=== PATIENT | male | born 1945 ===

== ENCOUNTER → 2022-04-18 08:25 | Outpatient (CLI) | payer MEDICARE, SELFPAY ==
--- NOTE | ~2022-04-18 | CT_ITS ---
EXAMINATION: CT abdomen pelvis wo/w con DATE: 04/18/2022 09:42 INDICATION: Microscopic hematuria TECHNIQUE: Computed tomography (CT) of the abdomen and pelvis was performed without intravenous contr ast. CT of the abdomen and pelvis was then performed with a total of 130 mL Omnipaque-350 intravenous contrast using a double-bolus technique for simultaneous opacification of the renal parenchyma and r enal collecting system. Automated exposure control and iterative reconstruction technique were employ ed. The dose-length product was 2174.66 mGy-cm. COMPARISON: None FINDINGS: CT UROGRAM: Mild bibasilar atelectasis. Heart size is normal. Atherosclerotic coronary artery calcific location. No pericardial or pleural effusion. Calcified right hilar and mediastinal lymph nodes along with a fe w scattered splenic calcifications consistent with old granulomatous disease. Liver, gallbladder, cabello creas and left adrenal gland are normal. 2.5 cm low-attenuation right adrenal adenoma. Several bilate ral nonenhancing renal cysts, the largest measuring 2.3 cm in the left kidney and 1.6 cm in the right kidney, both with slightly greater than simple fluid attenuation consistent with a proteinaceous/hem orrhagic cyst. 2 mm nonobstructing stone in an upper pole calyx of the right kidney. Bilateral ureter s are opacified excreted contrast in their near entirety with short tiny caliber likely decompressed distal segments of both ureters in the pelvis. No urothelial irregularities identified. Bladder is no rmal with a contrast opacified left-sided ureteral jet. Bowels including the appendix are normal. No free intraperitoneal gas or fluid. No pathologically enlarged abdominal or pelvic lymphadenopathy. Mi ld S-shaped curvature of the lumbar spine with severe spondylosis. Mild to moderate thoracic spondylo sis with bridging osteophytes at multiple levels consistent with diffuse idiopathic skeletal hyperost osis (DISH). IMPRESSION: 1. 2 mm nonobstructing right renal stone. No lesion suspicious for malignancy at the kidneys, ureters or bladder.. Reviewed, dictated and finalized at location A. IMPRESSION: 1. 2 mm nonobstructing right renal stone. No lesion suspicious for malignancy a t the kidneys, ureters or bladder..
[2022-04-18 09:11] LABS: Estimated Glomerular Filt Rate 59
== END ==
PROVIDERS: PCP Internal Medicine; Visit Provider Urology
DX: R31.29 Other microscopic hematuria (principal); N20.0 Calculus of kidney
CPT/HCPCS: 74178; Q9967

== ENCOUNTER 2025-08-11 10:30 | Emergency (ER) | payer MEDICARE, SELFPAY ==
--- NOTE | ~2025-08-11 | XR_ITS ---
EXAMINATION: XR chest 2V DATE: 08/11/2025 11:46 INDICATION: Syncope TECHNIQUE: frontal and lateral views of the chest were obtained. COMPARISON: None FINDINGS: Calcified nodule at the right apex along with calcified right paratracheal lymph nodes consistent with old granulomatous disease. Thin linear band of discoid atelectasis at the left costophrenic angle. No other airspace opacities, pulmonary edema, pleural effusion or pneumothorax. The cardiomediastinal silhouette is normal. Mild degenerative skeletal changes in the spine and at the shoulders. IMPRESSION: 1. Reviewed, dictated and finalized at location A. [facility] IMPRESSION: 1.
[2025-08-11 10:31] VITALS: BP 121/68; PULSE 66; RESP 15; TEMP 36.4; O2SAT 100
[2025-08-11 10:44] VITALS: PULSE 64
--- NOTE | 2025-08-11 10:46 | ECG_ITS ---
Test Date: 2025-08-11 10:52:33 Measurements Intervals [place] Rate: 68 P: 53 KS: 218 QRS: 30 QRSD: 139 T: -65 QT: 429 QTc: 458 Interpretive Statements SINUS RHYTHM WITH FIRST DEGREE AV BLOCK WITH OCCASIONAL VENTRICULAR PREMATURE COMPLEXES RIGHT BUNDLE BRANCH BLOCK T WAVE ABNORMALITY IN INFERIOR LEADS- CONSIDER ISCHEMIA BASELINE ARTIFACT- I, II, III, AVR, AVL, AVF, V1-V6 ABNORMAL ECG No previous ECG available for comparison Electronically Signed On 08-11-2025 11:37:09 [employer] by Loco Kiser D.O.
[2025-08-11 11:12] LABS: Hematocrit 43.6 % (42.0-52.0); Hemoglobin 14.2 g/dL (14.0-18.0); Immature Granulocyte Percent A 1.3 % (0-0.5); Lymphocytes Absolute Auto 0.91 K/mm3 (0.9-3.2); Mean Corpuscular HGB Conc 32.6 g/dl (32-36); Mean Corpuscular Hemoglobin 32.6 pg (26-34); Mean Corpuscular Volume 100.0 fl (80-100); Nucleated Red Blood Cells Absolute Auto 0.000 K/mm3 (0.0-0.012); Nucleated Red Blood Cells Perc 0.0 % (0.0-0.2); Platelet Count Result 159 k/mm3 (150-375); Red Blood Count 4.36 M/mm3 (4.6-6.20); White Blood Count 3.9 K/mm3 (4.5-10.0)
[2025-08-11 11:34] LABS: Alanine Aminotransferase 7 U/L (6-50); Albumin Level 3.3 g/dL (3.5-5.1); Alkaline Phosphatase 75 U/L (38-126); Anion Gap 3 mmol/L (4-12); Aspartate Amino Transferase 23 U/L (17-59); Bilirubin,Total 0.7 mg/dL (0.2-1.3); Blood Urea Nitrogen 23 mg/dL (9-20); Calcium 8.9 mg/dL (8.4-10.2); Carbon Dioxide 30 mmol/L (22-30); Chloride 100 mmol/L (98-107); Estimated CRCL calculation 51 ml/min; Estimated Glomerular Filt Rate > 60; Glucose 166 mg/dL (65-110); Potassium 4.7 mmol/L (3.4-5.0); Sodium 133 mmol/L (137-145); Total Protein 6.1 g/dL (6.3-8.2)
--- NOTE | 2025-08-11 12:15 | ED_ITS ---
HPI - Syncope General Chief Complaint: Syncope Stated Complaint: SYNCOPE Time Seen by Provider: 08/11/25 12:10 Source: EMS Mode of arrival: EMS History of Present Illness HPI narrative: 79 years old white male came from home by ambulance because of syncope. Patient was standing in the bathroom brushing his teeth suddenly got lightheadedness and dizziness, sat on the toilet to avoid falling, woke up on the floor, possible seconds or minutes of loss of consciousness. Currently patient is asymptomatic he denies any fever chills nausea vomiting diarrhea constipation chest pain shortness of breath headache neck pain or back pain. 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 Related Data Allergies Allergy/AdvReac Type Severity Reaction Status Date / Time mold Allergy Intermediate Unknown Verified 08/11/25 10:45 Review of Systems 2 Review of Systems: All systems reviewed & are unremarkable except as noted in HPI and below Exam 2 Narrative: General appearance: Well-developed, well-nourished, not in any pain or distress Skin: Pale Head: Normocephalic, nontraumatic Eyes: Clear conjunctiva ENT: Oropharynx normal, ears normal, nose normal Neck: Supple, nontender Chest and respiratory: Airway patent, no respiratory distress, no accessory muscle use Heart: Regular rate/rhythm Abdomen: Soft, nontender, no organomegaly, quiet bowel sounds Vascular: Normal peripheral pulses, normal capillary refill. Musculoskeletal: Normal range of motion, nontender back Neurologic: Alert and oriented ?3, FULL TIME is normal as tested, no gross motor deficit Course Consultations Hospitalist: Time of Consult: 13:44 I have discussed the care of this patient with the following provider: DR SOLER, HOSPITALIST AT [facility] WHO ACCEPTED PATIENT TRANS Vital Signs Vital signs: Vital Signs Temperature 36.4 C 08/11/25 10:31 Pulse Rate 66 08/11/25 10:31 Respiratory Rate 15 08/11/25 10:31 Blood Pressure 121/68 08/11/25 10:31 Pulse Oximetry 100 08/11/25 10:31 Oxygen Delivery Room Air 08/11/25 10:31 Temperature 36.4 C 08/11/25 10:31 Pulse Rate 64 08/11/25 10:44 Respiratory Rate 15 08/11/25 10:31 Blood Pressure 121/68 08/11/25 10:31 Pulse Oximetry 100 08/11/25 10:31 Oxygen Delivery Room Air 08/11/25 10:31 Critical Care Time Critical Care Time Critical Care Time: No Discharge Plan Discharge Clinical Impression: Syncope and collapse Patient Disposition: Left Against Medical Advice Condition: Guarded Prognosis Patient Language: [place] Follow-up/Referrals: Micheal,MD Jerson [Primary Care Provider] [facility] Narrative Medical decision making narrative: Patient came to the ED with syncope Vital signs are stable Physical examination showing a left upper chest pacemaker placed 1 week ago, the wound is dry and clean Differential diagnosis: Orthostatic hypotension, pacemaker malfunction, cardiac arrhythmia, electrolyte imbalance, dehydration blood workup today include maybe a CBC, CMP, troponin showed sodium 133, otherwise within normal limit EKG showed normal sinus rhythm Chest x-ray showed Differential Diagnosis Differential Diagnosis: As above Medical Records I have reviewed the following patient records and this information was taken into consideration when formulating the assessment and plan.: previous labs Lab Data [facility] Lab Attestation statement: I personally reviewed the patient's lab results. 08/11/25 11:06 08/11/25 11:06 Labs: Lab Results 08/11/25 Range/Units 11:06 WBC 3.9 L (4.5-10.0) K/mm3 RBC 4.36 L (4.6-6.20) M/mm3 Hgb 14.2 (14.0-18.0) g/dL Hct 43.6 (42.0-52.0) % MCV 100.0 (80-100) fl MCH 32.6 (26-34) pg MCHC 32.6 (32-36) g/dl RDW 14.5 (11.5-14.5) % Plt Count 159 (150-375) k/mm3 MPV 9.0 (7.4-10.4) fl Immature Gran % (Auto) 1.3 H (0-0.5) % Neut % (Auto) 61.1 (45.5-73.1) % Lymph % (Auto) 23.3 (18.3-44.2) % [place] % (Auto) 8.7 H (2.6-8.5) % Eos % (Auto) 4.1 (0-4.4) % Baso % (Auto) 1.5 H (0.2-1.2) % Lymph # (Auto) 0.91 (0.9-3.2) K/mm3 [place] # (Auto) 0.3 (0.1-0.6) K/mm3 Eos # (Auto) 0.2 (0-0.3) K/mm3 Baso # (Auto) 0.1 (0.0-0.1) K/mm3 Abs Immat Gran (auto) 0.05 H (0.00-0.031) K/mm3 Absolute Neuts (auto) 2.4 (1.3-6.7) K/mm3 Absolute Nucleated RBC 0.000 (0.0-0.012) K/mm3 Nucleated RBC % 0.0 (0.0-0.2) % Sodium 133 L (137-145) mmol/L Potassium 4.7 (3.4-5.0) mmol/L Chloride 100 (98-107) mmol/L Carbon Dioxide 30 (22-30) mmol/L Anion Gap 3 L (4-12) mmol/L BUN 23 H (9-20) mg/dL Creatinine 1.04 (0.7-1.3) mg/dL Estim Creat Clear Calc 51 ml/min Estimated GFR > 60 (59 - ) Glucose 166 H (65-110) mg/dL Calcium 8.9 (8.4-10.2) mg/dL Total Bilirubin 0.7 (0.2-1.3) mg/dL AST 23 (17-59) U/L ALT 7 (6-50) U/L Alkaline Phosphatase 75 (38-126) U/L Troponin I < 0.012 (0.000-0.034) ng/mL Total Protein 6.1 L (6.3-8.2) g/dL Albumin 3.3 L (3.5-5.1) g/dL Imaging Data Radiologist's impression: ITS Impressions Chest X-Ray 08/11/25 11:51 IMPRESSION: 1. ECG Data EKG #1: Attestation: I personally reviewed and interpreted this ECG as follows: ECG completion date: 08/11/25 Interpretation: Normal sinus rhythm at 68 beats per minute with first-degree heart block with occasional PVCs years on exam of right bundle-branch block, T-wave abnormality in inferior leads-consider ischemia, baseline artifact, abnormal EKG, no previous EKG available for comparison
[2025-08-11 13:07] LABS: Troponin I < 0.012 ng/mL (0.000-0.034)
[2025-08-11 13:13] VITALS: BP 136/76; PULSE 69
--- OUTSIDE RECORDS SUMMARY | 2025-08-11 14:18 | XMS_ITS | Clinical Summary ---
Author Organization [facility] Address [address] [place] [address] Phone Care Team Providers Care Freelance Court Reporter Name Role Phone Jerson Burton MD Primary Care Provider [phone] Laith Ceballos MD Unavailable [phone] Allergies No known active allergies Medications finasteride (PROSCAR) 5 MG Tablet Take 5 mg by mouth daily. Active furosemide (LASIX) 20 MG Tablet Take 20 mg by mouth daily. Active lisinopril (PRINIVIL, ZESTRIL) 10 MG Tablet Take 10 mg by mouth daily. Active simvastatin (ZOCOR) 80 MG Tablet Take 80 mg by mouth every evening. Pt states he cuts in half and takes 40mg Active timolol (TIMOPTIC) 0.5 % Solution Place 1 Drop in affected eye(s) 2 times daily. Active WARFARIN SODIUM PO Take 4 mg by mouth. 6mg one day then 8mg the next day Active Multiple Vitamin (MULTIVITAMIN PO) Take by mouth. Active carbidopa-levod opa (SINEMET) 25-100 MG Tablet Take 1 Tablet by mouth 3 times daily. Active amitriptyline (ELAVIL) 25 MG Tablet Take 25 mg by mouth nightly. Active Active Problems Problem Noted Date Diagnosed Date Small vessel disease 10/03/2023 Bulbar weakness 10/03/2023 Immunizations Immunization Administration Dates Next Due Influenza Vaccine, Quadrivalent, PF 05/22/2023 Influenza, High-dose, Quadrivalent 05/19/2021 Influenza, high-dose, trivalent, PF 03/30/2024 Pneumococcal Vaccine - 13 Valent 05/19/2021 Pneumococcal Vaccine Adult - 23 Valent Family History Medical History Relation Name Comments Heart Disease Father Diabetes Mother Relation Name Status Comments Father Mother Social History Tobacco Use Types Packs/Day Years Used Date Smoking Tobacco: Former Cigarettes 0 Q uit: 08/19/1995 Smokeless Tobacco: Never Tobacco Cessation:Counseling Given: Not Answered Alcohol Use Standard Drinks/Week Comments Yes 0 (1 standard drink = 0.6 oz pur e alcohol) rare once or twice a year Sex and Gender Information Value Date Recorded Sex Assigned at Not on file Legal Sex Male 11:10 AM CDT Gender Identity Not on file Sexual Orientation Not on file Last Filed Vital Signs Vital Sign Reading Time Taken Comments Blood Pressure 116/68 10/03/2023 9:28 AM MAP MAKER Pulse 59 10/03/2023 9:28 AM MAP MAKER Temperature 36.3 C (97.3 F) 10/03/2023 9:28 AM MAP MAKER Respiratory Rate 18 10/03/2023 9:28 AM MAP MAKER Oxygen Saturation 100% 10/03/2023 9:28 AM MAP MAKER Inhaled Oxygen Concentration - - Weight 88 kg (194 lb) 10/03/2023 9:28 AM MAP MAKER Height 185.4 cm (6' 1) 10/03/2023 9:28 AM MAP MAKER Body Mass Index 25.6 10/03/2023 9:28 AM MAP MAKER Plan of Treatment Health Maintenance Due Date Last Done Comments Hepatitis C Virus (HCV) Screening 1945 Medicare Initial AWV [id number] 11/17/2010 Respiratory Syncytial Virus (RSV) Immunization (Adult) (1 - 1-dose 75+ series) 2021 Influenza Immunization (#1) 2025 0809/2023, 06/03/2023, 05/22/2023, Additional history exists SARS-COV-2 Immunization ( season) 2025 06/03/2023, 01/02/2023, 05/04/2022, Additional history exists DTaP/Tdap/Td Immunization Discontinued 2016, 04/07/2017, 09/03/2007 TdaP Immunization Completed 06/21/2017, 04/07/2017 Zoster Immunization Completed 03/27/2022, 09/29/2021, 12/10/2013 Colonoscopy Discontinued 01/21/2023, 01/18, 12/15/2018 Colorectal Cancer Screening Discontinued Pneumococcal Immunization (50+ years) Completed 05/22/2023, 09/29/2021, 05/19/2021, Additional history exists Cologuard Discontinued Hepatitis B Immunization Aged Out No longer eligible based on patient's age to complete this topic Human Papillomavirus (HPV) Immunization (No Doses Required) Completed Immunochemical Fecal Occult Blood Discontinued Meningococcal Immunization (ACWY) Aged Out No longer eligible based on patient's age to complete this topic Rotavirus Immunization Aged Out No lo nger eligible based on patient's age to complete this topic Insurance MEDICARE [facility] Care Teams Freelance Court Reporter Relationship Specialty Start Date End Date Jerson Burton MD PCP - General Internal Medicine 02/07/22 Laith Ceballos MD [address] [place] [phone] Consulting Physician Neurology 07/05/22
--- OUTSIDE RECORDS SUMMARY | 2025-08-11 14:18 | XMS_ITS | Clinical Summary ---
Author Organization [facility] Address [address] [place] [address] Care Team Providers Care Fertilizing Machine Operator Name Role Phone Jerson Burton MD Unavailable [phone] Fran Gramajo MD Unavailable [phone] Jerson Burton MD Primary Care Provider [phone] Allergies Active Allergy Reactions Criticality Noted Date Comments Mold Rhinitis Low 06/13/2017 Medications finasteride (PROSCAR) 5 mg tablet Take 1 tablet (5 mg total) by mouth daily Active docusate sodium (COLACE) 100 mg capsule Take 1 capsule (100 mg total) by mouth 2 (two) times a day 3 caps BID Active warfarin (COUMADIN) 4 mg tablet Take 1 tablet (4 mg total) by mouth as directed 2 every other day Active timoloL (BETIMOL) 0.5 % ophthalmic solution Administer 1 drop into both eyes 2 (two) times a day Active furosemide (LASIX) 20 mg tablet Take 1 tablet (20 mg total) by mouth daily Active lidocaine (LIDODERM) 5 % Place 1 patch on the skin daily for 14 days Remove & discard patch within 12 hours or as directed by . 14 patch 023 Active Additional Information Patient not taking.Reported on 01/07/2025 timolol (TIMOPTIC) 0.5 % ophthalmic solution 1 drop 2 (two) times a day 024 Active ipratropium (ATROVENT) 42 mcg (0.06 %) nasal spray 2sprays each nostril daily Active warfarin (COUMADIN) 1.5 mg tablet Take 4 mg by mouth Active esomeprazole DR (NexIUM) 20 mg capsule Active warfarin (COUMADIN) 0.5 mg suspension Take by mouth Active multivitamin tablet Take by mouth Active carbidopa-levodop a (SINEMET) 25-100 mg per tabletIndications :Minor neurocognitive disorder Take 1 tablet by mouth 3 (three) times a day 90 tablet 11 025 2025 Active warfarin (COUMADIN) 3 mg tablet Take 1 tablet (3 mg total) by mouth daily Total 8 mg of warfarin nightly Active Additional Information Patient taking differently:3 mg oral2 times weekly, does 2 days of 6 mg and then 1 day of 8 mg and repeat that process through the week, Reported on 08/04/2025 lisinopriL (PRINIVIL,ZESTRIL ) 20 mg tablet Take 1 tablet (20 mg total) by mouth daily 90 tablet 3 025 2025 Active simvastatin (ZOCOR) 40 mg tablet Take 1 tablet (40 mg total) by mouth daily Active amitriptyline (ELAVIL) 25 mg tabletIndications :Bulbar weakness (HCC),Parkinsonia n features Take 1 tablet by mouth nightly 30 tablet 3 Active amitriptyline (ELAVIL) 25 mg tabletIndications :Bulbar weakness (HCC),Parkinsonia n features Take 1 tablet (25 mg total) by mouth nightly 30 tablet 11 025 2024 Discontinued Active Problems Problem Noted Date Diagnosed Date A-fib 08/04/2025 Overview (08/10/2025): On Coumadin. Complete heart block 08/04/2025 Longstanding persistent atrial fibrillation 12/2024 GILDA (obstructive sleep apnea) 07/07/2025 Weakness 10/16/2024 Assessment & Plan (2024 8:55 PM SILO WORKER): Mr. Francisco Javier Varner is a 79 y.o. male, who presents for evaluation of swallowing problems. He was seen in the neuromuscular clinic and referred to our clinic to assess for parkinsonism or another degenerative disease. He developed dysphagia at age 73. He then noticed changes in the voice, difficulty walking and standing from chairs. He has had a tremor in the hands for about 30 years that has not changed. He does not have hyposmia, RBD, or dysautonomia. Currently, he is bothered by the dysphagia, weight loss and limitations in mobility. There is no family history of parkinsonism or ataxia . On examination, there is weakness in the 4 limbs with mild bradykinesia with minimal postural tremor, but not changes in tone or tremor at rest, or ataxia. History and examination are compatible with weakness. The bradykinesia noted in the exam was mild and likely secondary to the weakness. He does not fulfil clinical criteria for parkinsonism. At this point, he does not have any signs of a movement disorder associated with his dysphagia and continuous work-up with the neuromuscular clinic is advised. Plan: Follow-up with the neuromuscular clinic. Potential medication side effects were discussed during the encounter. Syncope and collapse 09/28/2024 Overview (08/10/2025): Status post Biotronik Biomonitor 4 loop recorder insertion on 30 September 2024 (RL). Patient had a syncopal episode on 31 May 2025 while eating cereal and high protein drink--could it be postprandial hypotension? Nothing showed up on loop recorder that day. On 03 June 2025, patient was noted to have a 4-1/2 sec pause and short runs of two-to-one AV block. Patient possibly could be sleeping and he snores apparently. Because of complete heart block, he got a Biotronik Amvia Edge permanent dual- chamber pacemaker on 04 August 2025 (RL). Assessment & Plan (08/10/2025 9:21 AM SILO WORKER): We discussed that today's device remote check showed good numbers with 86% RV pacing and 33% RA pacing. In general, he is feeling better and stronger. Usual pacemaker precautions discussed. He will follow up with [facility] in December 2025. Assessment & Plan (06/07/2025 10:00 AM CDT): I gave patient and the 2 strips showing the long pause and the two-to-one AV block. Because there is a chance of obstructive sleep apnea, a sleep study was ordered and patient will see Dr. Gustafson for an evaluation. Patient advised not to do anything dangerous such as driving a car, swimming and/or climbing ladders. History of colon polyps 12/31/2022 Leg swelling 12/24/2022 Assessment & Plan (12/25/2022 12:53 PM CDT): Pt complaining of leg swelling starting today in his right leg with pain and redness. He has a history of a DVT 8 years ago for which he is still on warfarin. Although unlikely as his INR was above therapeutic range, will assess for DVT as he has a history of the same. - Lower limb doppler negative for DVT Supratherapeutic INR 12/24/2022 Assessment & Plan (12/25/2022 12:54 PM CDT): Pt's INR 2.4 on 12/25.. Continue to hold warfarin for GI procedure. Target INR 2- 3. Benign prostatic hyperplasia with lower urinary tract symptoms 12/24/2022 Assessment & Plan (12/24/2022 1:40 PM CDT): Pt taking finasteride prior to admission - Continue same Primary hypertension 12/24/2022 Assessment & Plan (12/24/2022 1:41 PM CDT): Pt taking lisinopril 10mg daily and lasix 20mg daily - continue same Choking episode 12/21/2022 Assessment & Plan (12/25/2022 12:53 PM CDT): Pt experienced choking episode after eating tacos and margaritas on December 21. He has since been intubated and extubated feeling well currently. The cause of this choking episode and preceding dysphagia has reportedly been worked up for some time by physicians in [facility]. CAR TESTER evaluation: okay for pt to be discharged with outpt CAR TESTER follow up. Barium swallow normal. 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 We gave him mupirocin which he thinks he used for five or seven days. He still has a tube on hand at home. He does not want a repeat culture at this time. He will call if any new problems arise. Assessment & Plan (07/01/2017 4:27 PM SILO WORKER): The nasal swab does show MRSA colonization. He may have other areas of MRSA colonization, but we will try to decolonize the nose with mupirocin to hopefully reduce the risk of recurrent infection. I explored when the patient would like to follow up with me, and he [facility] but wants to come back at the first of the year when some insurance changes are finalized to possibly reculture the nose and otherwise re-evaluate how he is doing. Cellulitis and abscess of trunk 05/15/2017 Assessment & Plan (10/20/2017 9:14 PM SILO WORKER): There has been no recurrence of the severe staph infection that he had in his mid to lower back. He had two abscesses that had to be drained, then he received prolonged antibiotics for associated bacteremia due to MRSA. He can return as needed for this problem since it seems to be resolved. Assessment & Plan (07/14/2017 6:10 AM SILO WORKER): He has had a complete recovery from the furuncles/abscesses of his back that were incised and drained in the hospital. He also had MRSA bacteremia which cleared on prolonged IV antibiotics. He has been off of any antibiotic for over a month now, and has not had any fever. The areas of previous infection on his back have healed completely, although the overlying skin remains moderately hyperemic. Says he has a lot of itching over most of the back and elsewhere. He seems to have a very sensitive skin and this is exemplified by a new rash he has over the right antecubital fossa as described in exam. [facility], but he does not know the details yet. He does have [facility]ams [facility] and from other doctors including a steroid cream that starts with a T. This is probably triamcinolone which he can apply to the erythematous areas on his back and the right forearm until he can get in to see the student teacher. Bacteremia due to Staphylococcus aureus 05/15/20 17 Assessment & Plan (10/11/2017 12:04 PM SILO WORKER): He has had no fever or chills, and no evidence clinically of recurrent bacteremia. Rash 01/17/2017 Assessment & Plan (10/11/2017 12:03 PM SILO WORKER): He has a moderate pruritic erythematous plaque-like rash on his back between the shoulder blades and extending down to the lower back. The plaques measure up to several cm in size and are confluent in areas. There are no erosions or ulcerations. Findings are suggestive of an inflammatory dermatitis or possibly infiltrative process. He has a few smaller plaques measuring up to 1 cm on his arms and abdomen, and reports additional plaques on his thighs. These have never been biopsied. He does have extensive seborrheic keratoses elsewhere which apparently were biopsied at one point by Dr. Romero although the patient does not remember hearing about the results. We will refer to Dr. Batista for a biopsy of the erythematous plaques which are chronic, present for at least six months now, very pruritic. They could represent psoriasis, cutaneous lymphoma, or other condition requiring a different treatment than he is now receiving. Currently he only applies a Gold Naqvi cream to the itchy rash which is the thing that helps him the most. History of DVT (deep vein thrombosis) 04/19/2010 Essential hypertension 04/19/2008 Mixed hyperlipidemia 04/19/2008 Aspiration into airway Dysphagia Encounters Date Type Department Care Team Description 08/10/2025 9:15 AM SILO WORKER Office Visit [facility] at [address] [place] [phone] Carlos Burton MD Paroxysmal atrial fibrillation (HCC) (Primary Dx); Syncope and collapse 08/09/2025 12:45 PM SILO WORKER Lab [address] [phone] History of DVT (deep vein thrombosis) 08/06/2025 10:00 AM SILO WORKER Therapy [facility] Speech Therapy [address] [place] [phone] Didi Fletcher, RITIKA Oropharyngeal dysphagia (Primary Dx) 08/05/2025 Orders Only [facility] [id number] [phone] MaleiDanne mcbride Sinus pause (Primary Dx); Syncope and collapse; Pacemaker 08/05/2025 Orders Only [facility] at [address] [place] [phone] Carlos Burton MD Atrial fibrillation, unspecified type (HCC) (Primary Dx) 08/04/2025 9:00 AM SILO WORKER - 08/04/2025 11:05 AM SILO WORKER Surgery [facility] Cardiac Catheterization [address] [place] [address] Carlos Burton MD IMPLANT DUAL CHAMBER PPM SYSTEM W/ DUAL ELECTRODES (GEN AND LEADS, NEW OR REPLACE) [id number] 08/04/2025 7:43 AM SILO WORKER - 08/05/2025 11:20 AM SILO WORKER Hospital Encounter [facility] Acute Medicine [address] [place] [phone] Carlos Burton MD History of DVT (deep vein thrombosis) (Primary Dx); Syncope and collapse; Longstanding persistent atrial fibrillation (HCC) Discharge Disposition: Discharge to home or self care 08/02/2025 10:05 AM SILO WORKER - 08/02/2025 11:59 PM SILO WORKER Hospital Encounter [facility] Cardiology [address] [place] [address] Syncope and collapse Discharge Disposition: Discharge to home or self care 08/02/2025 8:29 AM SILO WORKER - 08/02/2025 11:59 PM SILO WORKER Hospital Encounter [facility] Imaging Center [address] [place] [address] Syncope and collapse; Longstanding persistent atrial fibrillation (HCC) Discharge Disposition: Discharge to home or self care 08/02/2025 8:20 AM SILO WORKER Lab [address] [phone] Syncope and collapse; Longstanding persistent atrial fibrillation (HCC); Bradycardia; Pacemaker; Syncope, unspecified syncope type 08/02/2025 Orders Only [facility] at [address] [phone] Carlos Burton MD Atrial fibrillation, unspecified type (HCC) (Primary Dx) 08/02/2025 Orders Only [facility] at [address] [phone] Carlos Burton MD Syncope and collapse (Primary Dx) 08/02/2025 Orders Only [facility] at [address] [phone] Carlos Burton MD Longstanding persistent atrial fibrillation (HCC) (Primary Dx) 08/02/2025 Orders Only [facility] at [address] [phone] Carlos Burton MD Syncope and collapse (Primary Dx) 08/02/2025 Orders Only [facility] at [address] [phone] Carlos Burton MD Syncope and collapse (Primary Dx) 08/02/2025 Orders Only [facility] Cardiac Catheterization [address] [place] [address] Carlos Burton MD Pacemaker (Primary Dx); Syncope, unspecified syncope type; Bradycardia 07/30/2025 10:00 AM SILO WORKER Therapy [facility] Speech Therapy [address] [place] [phone] Didi Fletcher SLP Oropharyngeal dysphagia (Primary Dx) 07/26/2025 2:00 PM SILO WORKER Ancillary Procedure [facility] [address] [place] [phone] Syncope and collapse; CHB (complete heart block) 07/26/2025 Telephone [facility] at [address] [phone] Malathi Youssef MA 07/23/2025 10:00 AM SILO WORKER Therapy [facility] Speech [address] [address] Didi Fletcher, RITIKA Oropharyngeal dysphagia (Primary Dx) 07/23/2025 Plan of Care Documentation [address] [address] 07/23/2025 Orders Only [facility] at [address] [phone] Carlos Burton MD Syncope and collapse (Primary Dx); CHB (complete heart block) 07/19/2025 9:30 AM SILO WORKER Ancillary Procedure [facility] [address] [place] [phone] Implantable loop recorder present; Syncope and collapse 07/19/2025 Orders Only [facility] [address] [place] [phone] Malec, Dianne Syncope and collapse (Primary Dx); Implantable loop recorder present 07/12/2025 Orders Only [facility] at [address] [phone] Carlos Burton MD Dyspnea, unspecified type (Primary Dx) 07/09/2025 11:00 AM SILO WORKER Therapy [facility] Speech [address] [address] Didi Fletcher SLP Oropharyngeal dysphagia (Primary Dx) 07/09/2025 9:15 AM SILO WORKER Ancillary Procedure [facility] [address] [place] [phone] Implantable loop recorder present; Syncope and collapse 07/05/2025 11:00 AM SILO WORKER - 07/05/2025 11:59 PM SILO WORKER Hospital Encounter [facility] Sleep Diagnostic Center [address] [place] [address] GILDA (obstructive sleep apnea) Discharge Disposition: Discharge to home or self care 06/25/2025 11:00 AM SILO WORKER Therapy [facility] Speech Therapy [address] [place] [phone] Didi Fletcher, RITIKA Oropharyngeal dysphagia (Primary Dx) 06/23/2025 Telephone [facility] at [address] [phone] Carlos Burton MD 06/11/2025 10:00 AM CDT Therapy [facility] Speech Therapy [address] [place] [address] Didi Fletcher, RITIKA Oropharyngeal dysphagia (Primary Dx) 06/08/2025 Orders Only [facility] at [address] [phone] Carlos Burton MD Syncope and collapse (Primary Dx) 06/08/2025 Telephone [facility] at [address] [phone] Malathi Youssef MA 06/07/2025 9:00 AM CDT Office Visit [facility] at [address] [phone] Carlos Burton MD GILDA (obstructive sleep apnea) (Primary Dx); Syncope and collapse 06/04/2025 5:00 PM CDT Ancillary Procedure [facility] [address] [place] [phone] Implantable loop recorder present; Syncope and collapse 06/04/2025 11:30 AM CDT Ancillary Procedure [facility] at [address] [place] [address] Syncope and collapse (Primary Dx); Implantable loop recorder present; Encounter for interrogation of cardiac recorder 06/04/2025 11:30 AM CDT Office Visit [facility] at [address] [place] [phone] Carlos Burton MD Implantable loop recorder present (Primary Dx) 06/04/2025 10:00 AM CDT Therapy [facility] Speech Therapy [address] [place] [phone] Didi Fletcher, CAR TESTER Oropharyngeal dysphagia (Primary Dx) 06/04/2025 Documentation [facility] at [address] [phone] Brooklyn Cruz RN 05/28/2025 10:00 AM CDT Therapy [facility] Speech Therapy [address] [place] [address] Didi Fletcher, RITIKA Oropharyngeal dysphagia (Primary Dx) 05/21/2025 10:00 AM CDT Therapy [facility] Speech Therapy [address] [place] [phone] Didi Fletcher, RITIKA Oropharyngeal dysphagia (Primary Dx) 05/14/2025 10:00 AM CDT Therapy [facility] Speech Therapy [address] [place] [phone] Didi Fletcher, RITIKA Oropharyngeal dysphagia (Primary Dx) 05/14/2025 Plan of Care Documentation [facility] Speech [address] [phone] from Last 3 Months Immunizations Immunization Administration Dates Next Due Influenza, Unspecified 06/24/2017 Tdap 04/07/2017 Surgical History Surgery Date Site/Laterality Comments BACK SURGERY KNEE SURGERY Left MRSA COLONOSCOPY 10 years ESOPHAGOGASTRODUODENOSCOPY 04/01/2020 s/p dilatation CATARACT EXTRACTION W/ INTRA OCULAR LENS IMPLANT Bilateral INCISION AND DRAINAGE 08/19/2016 - 08/18/2017 back abscess-MRSA CARDIAC ELECTROPHYSIOLOGY PROCEDURE 09/30/2024 N/A Procedure: IMPLANTABLE CARDIAC EVENT MONITOR INSERTION [id number]; Surgeon: Carlos Burton MD; Location: [facility] CARDIAC SEWING TECHNIQUES DEMONSTRATOR; Service: Cardiovascular; Laterality: N/A; Medical devices from this surgery are in the Medical Devices section. CARDIAC ELECTROPHYSIOLOGY PROCEDURE 08/04/2025 N/A Procedure: IMPLANT DUAL CHAMBER PPM SYSTEM W/ DUAL ELECTRODES (GEN AND LEADS, NEW OR REPLACE) [id number]; Surgeon: Carlos Burton MD; Location: [facility] CARDIAC SEWING TECHNIQUES DEMONSTRATOR; Service: Cardiovascular; Laterality: N/A; Medical devices from this surgery are in the Medical Devices section. CARDIAC ELECTROPHYSIOLOGY PROCEDURE 08/04/2025 N/A Procedure: IMPLANTABLE CARDIAC EVENT MONITOR REMOVAL [id number]; Surgeon: Carlos Burton MD; Location: [facility] CARDIAC SEWING TECHNIQUES DEMONSTRATOR; Service: Cardiovascular; Laterality: N/A; Medical devices from this surgery are in the Medical Devices section. Medical History Medical History Date Comments Back pain Hypertension Hypercholesterolemia GERD (gastroesophageal reflux disease) Glaucoma DVT (deep venous thrombosis) 2009 MRSA (methicillin resistant Staphylococcus aureus) 1 negative swab Ex-smoker 12/22/2022 pack a day for a bout 30yrs, quit 25 years ago Family History Medical History Relation Name Comments Dementia Neg Hx Parkinsonism Neg Hx Tremor Neg Hx Social History Tobacco Use Types Packs/Day Years Used Date Smoking Tobacco: Former Cigarettes 1 37 1 959 - 1995 Smokeless Tobacco: Never Tobacco Cessation:Counseling Given: Not Answered Alcohol Use Standard Drinks/Week Comments Not Currently 0 (1 standard drink = 0.6 oz pur e alcohol) Social Connection and Isolation Panel Answer Date Recorded In a typical week, how many times do you talk on the phone with family, friends, or neighbors? Once a week 12/24/2022 How often do you get togethe r with friends or relatives? Once a week 12/24/2022 How often do you attend [facility] or sabianist services? More than 4 times per year 12/24/2022 Do you belong to any clubs o r organizations such as mosque groups, unions, fraternal or athletic groups, or school groups? Yes 12/24/2022 How often do you attend meet ings of the clubs or organizations you belong to? Never 12/24/2022 Are you , , di vorced, , never , or living with a partner? Living with partner 12/24/2022 AUDIT-C Answer Date Recorded Q1: How often do you have a drink containing alc ohol? Monthly or less 04/02/2024 Q2: How many drinks containi ng alcohol do you have on a typical day when you are drinking? 1 or 2 04/02/2024 Frequency of Binge Drinking Not on file 03/19 Overall Financial Resource Strain (CARDIA) Answe r Date Recorded How hard is it for you to pa y for the very basics like food, housing, medical care, and heating? Not very hard 12/24/2022 Hunger Vital Sign Answer Date Recorded Within the past 12 months, y ou worried that your food would run out before you got the money to buy more. Sometimes true Within the past 12 months, t he food you bought just didn't last and you didn't have money to get more. Sometimes true 03/2023 PRAPARE - Transportation Answer Date Re corded In the past 12 months, has l ack of transportation kept you from medical appointments or from getting medications? No 03/2023 In the past 12 months, has l ack of transportation kept you from meetings, work, or from getting things needed for daily living? No 12/24/2022 Housing Stability Vital Sign Answer Kye e Recorded In the last 12 months, was t here a time when you were not able to pay the mortgage or rent on time? No 12/24/2022 In the last 12 months, how many places have you lived? 1 12/24/2022 In the last 12 months, was t here a time when you did not have a steady place to sleep or slept in a usp (including now)? No 12/24/2022 Personal Safety Answer Date Recorded Have you ever been in or are you currently in a harmful physical or emotional relationship or is someone making you feel afraid or unsafe? Denies 08/04/2025 Education Answer Date Recorded What is the highest level of school you have completed or the highest degree you have received? Some college, no degree 12/24/2022 Sex and Gender Information Value Date Recorded Sex Assigned at Not on file Legal Sex Male 4:19 PM CDT Gender Identity Not on file Sexual Orientation Not on file Last Filed Vital Signs Vital Sign Reading Time Taken Comments Blood Pressure 135/75 08/05/2025 8:10 AM SILO WORKER Pulse 71 08/05/2025 8:10 AM SILO WORKER Temperature 36.4 C (97.5 F) 08/05/2025 8:10 AM SILO WORKER Respiratory Rate 18 08/05/2025 3:00 AM SILO WORKER Oxygen Saturation 96% 08/05/2025 8:10 AM SILO WORKER Inhaled Oxygen Concentration - - Weight 69.4 kg (153 lb) 08/04/2025 8:17 AM SILO WORKER Height 180.3 cm (5' 11) 08/04/2025 8:17 AM SILO WORKER Body Mass Index 21.34 08/04/2025 8:17 AM SILO WORKER Plan of Treatment Health Maintenance Due Date Last Done Comments Hepatitis C Screening 1945 Hepatitis B Screening 1963 Abdominal Aortic Aneurysm (A AA) Screen 10/23/2011 Well Visit 65+ 10/23/2011 Covid-19 Vaccine (2024-09 6 season) 2025 05/04/2022, 05/09/2021, 10/03/2020, Additional history exists Depression Screening 10/09/2025 10/09/2024 Fall Risk Assessment 08/05/2026 08/05/2025 DTaP/Tdap/Td Vaccine (3 - Td or Tdap) 06/21/2027 06/21/2017, 04/07/2017, 09/03/2007 Zoster Vaccine Completed 03/27/2022, 09/19, 12/10/2013 Colon Cancer Screening-CT Colonography Discontinued 01/21/2023, 02/09/2019, 12/15/2018 Colon Cancer Screening-Colonoscopy Discontinued 01/21/2023, 02/09/2019, 12/15/2018 Colon Cancer Screening-DNA Stool Discontinued 01/21/2023, 02/09/2019, 12/15/2018 Colon Cancer Screening-FIT Discontinued 01/21, 02/09/2019, 12/15/2018 Colon Cancer Screening-FOBT Discontinued 12/2022, 02/09/2019, 12/15/2018 Colon Cancer Screening-Sigmoidoscopy Discontinued 01/21/2023, 02/09/2019, 12/15/2018 Colorectal Cancer Screening Discontinued Pneumococcal vaccine 65+ Completed 023, 09/29/2021, 05/19/2021, Additional history exists Influenza Vaccine Completed 05/19/2025, , 06/03/2023, Additional history exists Medical Devices Implanted Type Area [employer] Consultant Device Identifier Shelf Expiration Date Model / Serial / Lot Outsmart Inc Loop Recorder Monitor Cardiac Biomonitor Iv [id number] - [id number] Implanted:Qty: 1 on 10/01/2024 by Carlos Burton MD at [facility] [employer] Zirtual [id number] / / Medtronic Inc Tyrx Absorbable Antibacterial Envelope Large 3.3x2.9in [id number] - [id number] Implanted:Qty: 1 on 08/04/2025 by Carlos Burton MD at [facility] [employer] Inc 04/18/2026 [id number] / / [id number] Bi[employer]ron[employer] Zirtual Active Fixation Transvenous Is 1 Connector Latex Free Sterile Atrial Ventricular Solia 45cm [id number] - [id number] Implanted:Qty: 1 on 08/04/2025 by Carlos Burton MD at [facility] [employer] Inc 03/18/2026 [id number] / / Biotronik Inc Endocardial Pacing Lead Promri Solia T 53 [id number] - [id number] Implanted:Qty: 1 on 08/04/2025 by Carlos Burton MD at [facility] [employer] Inc 01/16/2026 [id number] / / Biotronik Inc Pacemaker Implantable Amvia Edge Dual Chamb Rate-Responsive [id number] - [id number] Implanted:Qty: 1 on 08/04/2025 by Carlos Burton MD at [facility] [employer]irtual 12/16/2026 [id number] / / Procedures Procedure Name Priority Date/Time Associated Diagnosis Comments PROTIME-INR Routine 08/09/2025 1:00 PM SILO WORKER History of DVT (deep vein thrombosis) XR CHEST PA LATERAL 2 VIEWS Pending Discharge 08/05/2025 8:28 AM SILO WORKER XR CHEST 1 VIEW ED Urgent/IP Urgent 08/04/2025 12:39 PM SILO WORKER LOOP RECORDER REMOVAL Routine 08/04/2025 10:58 AM SILO WORKER Syncope and collapse Longstanding persistent atrial fibrillation (HCC) IMPLANT DUAL CHAMBER PPM SYSTEM W/ DUAL ELECTRODES (GEN AND LEADS, NEW OR REPLACE) Routine 08/04/2025 10:58 AM SILO WORKER Syncope and collapse Longstanding persistent atrial fibrillation (HCC) ECG 12-LEAD Routine 08/02/2025 10:25 AM SILO WORKER Syncope and collapse XR CHEST PA LATERAL 2 VIEWS Schedule Routine, Read Routine (OP Routine) 08/02/2025 8:46 AM SILO WORKER Syncope and collapse Longstanding persistent atrial fibrillation (HCC) EGFR Routine 08/02/2025 8:24 AM SILO WORKER Bradycardia DIFFERENTIAL AUTO Routine 08/02/2025 8:2 4 AM SILO WORKER Syncope and collapse Longstanding persistent atrial fibrillation (HCC) PROTIME-INR STAT 08/02/2025 8:24 AM SILO WORKER Pacemaker Syncope, unspecified syncope type BASIC METABOLIC PANEL Routine 08/02/2025 8:24 AM SILO WORKER Bradycardia CBC WITH AUTO DIFFERENTIAL Routine 08/02/2025 8:24 AM SILO WORKER Syncope and collapse Longstanding persistent atrial fibrillation (HCC) TRANSTHORACIC ECHO (TTE) COMPLETE W DOPPLER/CF WO CONTRAST Routine 07/26/2025 2:50 PM SILO WORKER Syncope and collapse CHB (complete heart block) DEVICE CHECK - REMOTE Routine 07/19/2025 9:20 AM SILO WORKER Implantable loop recorder present Syncope and collapse DEVICE CHECK - REMOTE Routine 07/09/2025 8:02 AM SILO WORKER Implantable loop recorder present Syncope and collapse PORTABLE/HOME SLEEP STUDY Routine 07/07/2025 GILDA (obstructive sleep apnea) DEVICE CHECK - IN OFFICE Routine 06/04/2025 11:36 AM CDT Implantable loop recorder present DEVICE CHECK - REMOTE Routine 06/04/2025 8:30 AM CDT Implantable loop recorder present Syncope and collapse COLONOSCOPY 01/21/2023 12:44 PM CDT from Last 3 Months or Most Recently Relevant to Health Maintenance Results * Protime-INR (08/09/2025 1:00 PM SILO WORKER) PT 11.3 10.2 - 13.5 sec [facility] INR 1.00 0.90 - 1.20 [facility] Comment: Interpretive data Oral anticoagulant therapeutic ranges: Venous thromboembolism prophylaxis or treatment: 2.0-3.0 CARDIOLOGY Standard range: 2.0-3.0 High-intensity range: 2.5-3.5 Refer to indication-specific guidelines for appropriate target ranges for prosthetic heart valve replacement. Current interpretive data was last revised on 2019. Blood Venous blood specimen / Unknown 08/09/2025 1:00 PM SILO WORKER 08/09/2025 2:07 PM SILO WORKER us Carlos Burton MD LAB BLOOD ORDERABLES Final Re sult [facility] ([place] [place] [address] * XR Chest PA Lateral 2 View (08/05/2025 8:28 AM SILO WORKER) Anatomical Region Laterality Modality Body, Chest N/A Computed Radiogr aphy 08/05/2025 8:31 AM SILO WORKER Impressions 08/05/2025 8:31 AM SILO WORKER No acute cardiopulmonary abnormality. Electronically signed by: Oliver Bennett M.D. Narrative 08/05/2025 8:31 AM SILO WORKER EXAMINATION: XR CHEST PA LATERAL 2 VIEWS HISTORY: Day 1 post PPM/ICD implant TECHNIQUE: Frontal and lateral views of the chest. COMPARISON: 08/04/2025 FINDINGS: Cardiac silhouette and mediastinal contours are normal. Left chest dual lead AICD. No focal consolidation. No pleural effusion or pneumothorax. Procedure Note Oliver Bennett MD - 08/05/2025 EXAMINATION: XR CHEST PA LATERAL 2 VIEWS HISTORY: Day 1 post PPM/ICD implant TECHNIQUE: Frontal and lateral views of the chest. COMPARISON: 08/04/2025 FINDINGS: Cardiac silhouette and mediastinal contours are normal. Left chest dual lead AICD. No focal consolidation. No pleural effusion or pneumothorax. IMPRESSION: No acute cardiopulmonary abnormality. Electronically signed by: Oliver Bennett M.D. Carlos Burton MD IMG XR PROCEDURES Final Resul t * X-ray chest 1 view (08/04/2025 12:39 PM SILO WORKER) Anatomical Region Laterality Modality Body, Chest N/A Computed Radiogr aphy 08/04/2025 12:4 4 PM SILO WORKER Impressions 08/04/2025 12:44 PM SILO WORKER No acute cardiopulmonary process. Left-sided AICD with leads in right atrium and right ventricle. No pneumothorax. Electronically signed by: Russell Parker M.D. Narrative 08/04/2025 12:44 PM SILO WORKER EXAMINATION: XR CHEST 1 VIEW HISTORY: Post PPM/ICD implant. TECHNIQUE: SingleView of the chest was obtained. COMPARISON: Radiograph dated August 02, 2025 FINDINGS: HEART/MEDIASTINUM: Heart size is normal. Normal mediastinal and hilar contours. LUNGS/PLEURA: No focal consolidation or pneumothorax. No pleural effusion. HARDWARE/LINES/TUBES: Interval placement of a left-sided AICD with leads in right atrium and right ventricle. BONES: No acute findings. OTHER: No other significant finding. Procedure Note Russell Parker MD - 08/04/2025 EXAMINATION: XR CHEST 1 VIEW HISTORY: Post PPM/ICD implant. TECHNIQUE: SingleView of the chest was obtained. COMPARISON: Radiograph dated August 02, 2025 FINDINGS: HEART/MEDIASTINUM: Heart size is normal. Normal mediastinal and hilar contours. LUNGS/PLEURA: No focal consolidation or pneumothorax. No pleural effusion. HARDWARE/LINES/TUBES: Interval placement of a left-sided AICD with leads in right atrium and right ventricle. BONES: No acute findings. OTHER: No other significant finding. IMPRESSION: No acute cardiopulmonary process. Left-sided AICD with leads in right atrium and right ventricle. No pneumothorax. Electronically signed by: Russell Parker M.D. us Carlos Burton MD IMG XR PROCEDURES Final Resul t * IMPLANT DUAL CHAMBER PPM SYSTEM W/ DUAL ELECTRODES (GEN AND LEADS, NEW OR REPLACE), LOOP RECORDER REMOVAL (08/04/2025 10:58 AM SILO WORKER) Anatomical Region Laterality Modality X-Ray Angiograph y 08/04/2025 Narrative 08/05/2025 6:54 AM SILO WORKER [employer] Job ID: [id number] [employer] Document ID: [id number] Dictated date/time: [id number] He is a 79-year-old male with dizziness. Recent chief console operator showed 2:1 AV block and also complete heart block. A dual-chamber pacemaker was suggested and the patient agrees. He understands the risks to include the following: , myocardial perforation, lead dislodgement, pain, bleeding, infection, vascular problems, dye reaction, dysrhythmias, pneumothorax, arterial stick, etc. Radiation exposure also discussed with the patient. PROCEDURE The patient was brought down to the cardiac laborer airport maintenance where a time-out was done in the room prior to the procedure. Total sedation time was 85 minutes. Patient received in small increments of 2 mg IV Versed, 50 mg IV Benadryl, and 100 mcg fentanyl. One percent lidocaine was then given to the left infraclavicular region. Access to left subclavian vein was obtained on the first stick. A J-tip guidewire was then placed into the inferior vena cava under fluoroscopy. This particular maneuver confirmed venous location. I then created a pocket and left an antibiotics sponge in there for hemostasis. Next, I used retained guidewire technique to put two sheaths into the venous system. Through the first and larger 8-Zimbabwean sheath, I placed a 53 cm tined RV pacing lead, and that 8-Zimbabwean sheath was peeled away. Through the second smaller 6-Zimbabwean sheath, I placed a 45 cm tined RA pacemaker lead, and that 6-Zimbabwean sheath was peeled away. The longer lead was then placed into the RV outflow tract using a curved stylet. Using a straight stylet, I was able to pull it back into the main right ventricle. PVCs noted during lead manipulation. Good numbers noted in the ventricle with stable RV pace impedance of 765 ohms and nice RV threshold of 0.6 V at 0.4 millisecond. After making sure there was plenty of heel in the RV lead in the right atrium, its suture sleeve was affixed to the prepectoral fascia with 2-0 GI silk sutures. Next, the right atrial lead was then placed into the right atrial appendage by pulling out on the stylet. Nice windshield wiping motion noted. Heart was quite rotated. Good numbers noted in the atrium with sensing of 4.0 mV, stable RA lead impedance of 703 ohms, and a nice RA threshold of 0.9 V at 0.4 millisecond. Again, making sure there was plenty of heel in the RA lead in the right atrium, its suture sleeve was affixed to the prepectoral fascia with 2-0 GI silk sutures. Both leads were then connected to the new pulse generator. This was a [employer] Amvia Edge device. Wirelessly, everything was noted to be functioning quite well. All bleeding points were controlled by electrocautery. Pocket was flushed multiple times with sterile antibiotic solution. The entire system fit nicely into the pocket. No severe lead angulation in that pocket that I could see. Final fluoroscopy also did not show any severe lead angulation in the pocket. Nice heels noted in both leads in the right atrium. Half of a TYRX antibiotic pocket was then placed underneath the system and the other half was placed on top of the system. Sponge count, needle count, and instrument count were correct prior to closing the pocket. The pocket was then closed in two layers. Deepest layer was subcutaneous and this was closed with multiple interrupted sutures of 2-0 Vicryl. Most superficial layer was subcuticular and this was closed with a running 4-0 Vicryl subcuticular stitch. This was followed by Superglue and then an island dressed. Left upper extremity sling was then applied. Hopefully to go home tomorrow if he continues to do well. Wound check in my office next week as scheduled. Job ID/Internal Job ID: [id number] us Carlos Burton MD CV ELECTROPHYSIOLOGY PROCS Fi nal Result * ECG 12 lead (08/02/2025 10:25 AM SILO WORKER) 08/02/2025 10:2 3 AM SILO WORKER Narrative [facility] - 08/02/2025 12:11 PM SILO WORKER Vent Rate: 47 bpm RR Interval: 1263 msec SC Interval: 192 msec QRS Duration: 143 msec QT Interval: 489 msec QTC Interval: 452 msec P-R-T [place]: 11 - 24 - 33 degrees IMPRESSION: SINUS BRADYCARDIA RIGHT BUNDLE BRANCH BLOCK [120+ ms QRS DURATION, UPRIGHT V1, 40+ ms S IN I/aVL/V4/V5/V6] ABNORMAL ECG Compared to Prior EKG, heart rate has decreased Electronically Signed By: Earl Bloom MD us Carlos Burton MD ECG ORDERABLES Final Result [facility] [place] * XR Chest Pa Lateral 2 Views (08/02/2025 8:46 AM SILO WORKER) Anatomical Region Laterality Modality Body, Chest N/A Computed Radiogr aphy 08/02/2025 12:3 4 PM SILO WORKER Impressions 08/02/2025 12:34 PM SILO WORKER No acute cardiopulmonary abnormality. Electronically signed by: Fabio Funk MD Narrative 08/02/2025 12:34 PM SILO WORKER EXAMINATION: XR CHEST PA LATERAL 2 VIEWS HISTORY: Syncope and collapse TECHNIQUE: Frontal and lateral views of the chest. COMPARISON: 09/28/2024 FINDINGS: Calcified granuloma in the right lung. No focal consolidation. No sizable pleural effusion or pneumothorax. There is unchanged tortuosity of the thoracic aorta. The heart size and mediastinal contours are unchanged. A loop recorder is noted. Procedure Note Fabio Funk MD - 08/02/2025 EXAMINATION: XR CHEST PA LATERAL 2 VIEWS HISTORY: Syncope and collapse TECHNIQUE: Frontal and lateral views of the chest. COMPARISON: 09/28/2024 FINDINGS: Calcified granuloma in the right lung. No focal consolidation. No sizable pleural effusion or pneumothorax. There is unchanged tortuosity of the thoracic aorta. The heart size and mediastinal contours are unchanged. A loop recorder is noted. IMPRESSION: No acute cardiopulmonary abnormality. Electronically signed by: Fabio Funk MD us Carlos Burton MD IMG XR PROCEDURES Final Resul t * eGFR (08/02/2025 8:24 AM SILO WORKER) eGFR 90 >=60 mL/min/1. 73 m2 Comment: Interpretive Data Reference Interval Normal >/= 90 mL/min/1.73m2 Mildly decreased* 60 - 89 mL/min/1.73m2 Mildly to moderately decreased 45 - 59 mL/min/1.73m2 Moderately to severely decreased 30 - 44 mL/min/1.73m2 Severely decreased 15 - 29 mL/min/1.73m2 Kidney Failure < 15 mL/min/1.73m2 *Relative to young adult level Estimated glomerular filtration rate is determined by the 2020 CKD-EPI equation recommended by the National Kidney Foundation (A Unifying Approach to GFR Estimation: Recommendations of the NKF-ASK Task Force on Reassessing the Inclusion of Race in Diagnosing Kidney Disease, JASN 2020). The CKD-EPI equation should not be used for patients with unstable renal function and has not been validated in children and those over 70. Current interpretive data was last reviewed 2021. Blood 08/02/2025 8:24 AM SILO WORKER 08/02/2025 8:42 AM SILO WORKER us Carlos Burton MD LAB BLOOD ORDERABLES Final Re sult [facility] ([place]) 1 [facility] Department [place] [address] * Differential, auto (08/02/2025 8:24 AM SILO WORKER) Neutrophil abs 3.11 1.50 - 6.50 K/cumm Imm gran abs 0.02 0.00 - 0.10 K/cumm [facility] ([place]) Lymphocyte abs 1.30 0.80 - 3.30 K/cumm [facility]) Monocyte abs 0.56 0.20 - 0.80 K/cumm [facility]) Eosinophil abs 0.26 0.00 - 0.50 K/cumm [facility]) Basophil abs 0.07 0.00 - 0.10 K/cumm [facility] ([place]) Neutrophil pct 58.5 % [facility] Comment: Interpretive Data Percent cell count reference ranges are not reported, since discordance with absolute values may lead to misinterpretation of CBC data. Current Interpretive Data was last revised on 2017. Imm gran pct 0.4 % [facility] ([place]) Comment: Interpretive Data Percent cell count reference ranges are not reported, since discordance with absolute values may lead to misinterpretation of CBC data. Current Interpretive Data was last revised on 2017. Lymphocyte pct 24.4 % [facility] Comment: Interpretive Data Percent cell count reference ranges are not reported, since discordance with absolute values may lead to misinterpretation of CBC data. Current Interpretive Data was last revised on 2017. Monocyte pct 10.5 % [facility] Comment: Interpretive Data Percent cell count reference ranges are not reported, since discordance with absolute values may lead to misinterpretation of CBC data. Current Interpretive Data was last revised on 2017. Eosinophil pct 4.9 % [facility] Comment: Interpretive Data Percent cell count reference ranges are not reported, since discordance with absolute values may lead to misinterpretation of CBC data. Current Interpretive Data was last revised on 2017. Basophil pct 1.3 % [facility] Comment: Interpretive Data Percent cell count reference ranges are not reported, since discordance with absolute values may lead to misinterpretation of CBC data. Current Interpretive Data was last revised on 2017. Blood 08/02/2025 8:24 AM SILO WORKER 08/02/2025 8:42 AM SILO WORKER us Carlos Burton MD LAB BLOOD ORDERABLES Final Re sult [facility] Department [place] [address] * (ABNORMAL) CBC with auto differential (08/02/2025 8:24 AM SILO WORKER) WBC 5.32 3.80 - 9.90 K/cumm Hgb 14.6 13.0 - 17.5 g/dL [facility] Hct 44.3 38.9 - 50.3 % [facility] Plt 171 150 - 400 K/cumm [facility] MPV 9.4 9.1 - 12.3 fL [facility] RBC 4.52 4.30 - 5.80 M/cumm [facility] MCV 98.0(H) 81.3 - 96.4 fL [facility] MCH 32.3 27.1 - 33.3 pg [facility] MCHC 33.0 32.3 - 35.7 g/dL [facility] RDW CV 14.5 11.1 - 14.9 % [facility] RDW SD 52.5(H) 35.7 - 48.1 fL [facility] NRBC abs 0.00 0.00 - 0.01 K/cumm [facility] Blood 08/02/2025 8:24 AM SILO WORKER 08/02/2025 8:42 AM SILO WORKER Carlos Burton MD LAB BLOOD ORDERABLES Final Re sult [facility] 1 [facility] Department of Laboratories [place], [place] [id number] * (ABNORMAL) Protime-INR (08/02/2025 8:24 AM SILO WORKER) PT 26.3(H) 10.2 - 13.5 sec [facility] ([place] INR 2.37(H) 0.90 - 1.20 [facility] Comment: Interpretive data Oral anticoagulant therapeutic ranges: Venous thromboembolism prophylaxis or treatment: 2.0-3.0 CARDIOLOGY Standard range: 2.0-3.0 High-intensity range: 2.5-3.5 Refer to indication-specific guidelines for appropriate target ranges for prosthetic heart valve replacement. Current interpretive data was last revised on 2019. Blood 08/02/2025 8:24 AM SILO WORKER 08/02/2025 8:42 AM SILO WORKER us Carlos Burton MD LAB BLOOD ORDERABLES Final Re sult [facility] 1 [facility] [employer] [place] [address] * Basic metabolic panel (08/02/2025 8:24 AM SILO WORKER) Sodium 136 135 - 145 mmol/L Potassium, pl 4.8 3.3 - 4.9 mmol/L [facility] Chloride 101 97 - 110 mmol/L [facility] CO2 31 22 - 32 mmol/L [facility] Anion gap 4 2 - 15 mmol/L [facility] BUN 19 6 - 25 mg/dL [facility] Creatinine 0.83 0.80 - 1.30 mg/dL [facility] Glucose 97 70 - 199 mg/dL [facility] Comment: Interpretive Data Fasting glucose >/= 126 mg/dl is diagnostic for diabetes. Fasting is defined as no caloric intake for at least 8 hours. Fasting glucose between 100 mg/dl to 125 mg/dl is diagnostic of prediabetes. In a patient with classic symptoms of hyperglycemia or hyperglycemic crisis, a random glucose >/= 200 mg/dl is diagnostic for diabetes. In the absence of unequivocal hyperglycemia, results should be confirmed by repeat testing. The classification and Diagnosis of Diabetes Diabetes Care 2021; 46: S19-S40. Current interpretive data was last revised 2022. Calcium 9.7 8.5 - 10.3 mg/dL [facility] Blood 08/02/2025 8:24 AM SILO WORKER 08/02/2025 8:42 AM SILO WORKER us Carlos Burton MD LAB BLOOD ORDERABLES Final Re sult [facility] [place] [address] * TRANSTHORACIC ECHO (TTE) COMPLETE W DOPPLER/CF WO CONTRAST (07/26/2025 2:50 PM SILO WORKER) EF Mod BP 45 % CONS SCIMAGE Anatomical Region Laterality Modality Ultrasound 07/26/2025 1:56 PM SILO WORKER Narrative 07/26/2025 4:47 PM SILO WORKER [employer] [address] [place] [address] Echocardiogram Report Patient Name: FRANCISCO JAVIER [facility] D : 1945 Study Date: 07/26/2025 1:56:25 PM Sex: M Tech: AG Ref Provider: CARLOS BURTON Height(Cm): 182.9 BSA: 1.99 Weight(Kg): 78 Heart Rate: 73 BMI: 23.32 BP: 99/68 Quality: Good Order Provider: CARLOS BURTON PROCEDURES: Echocardiographic Report: Transthoracic echocardiogram with complete 2D, M-Mode, and color Doppler examination. INDICATIONS: Atrial Fibrillation, Hyperlipidemia, Hypertension, R55 Syncope and collapse, and I44.2 Atrioventricular block, complete. MEASUREMENTS: 2D/MM Value Range Doppler Value Range EF Teich 2D 45.0 percent [ 52.0 - 72.0 ] MARLENY Vmax 1.62 cm2 EF Mod BP 45 % [ 52 - 72 ] AV Mean PG 4 mmHg LVIDd 2D 5.30 cm [ 4.20 - 5.80 ] AV Peak Jeremi 1.42 m/s [ 1.00 - 1.70 ] LVIDs 2D 4.29 cm [ 2.50 - 4.00 ] AV VTI 28.81 cm LVPWd 2D 1.18 cm [ 0.60 - 1.00 ] LVOT Diam 2.34 cm IVSd 2D 0.94 cm [ 0.60 - 1.00 ] LVOT Peak Jeremi 0.53 m/s [ 0.70 - 1.10 ] LA Dimension MM 3.43 cm [ 3.00 - 4.00 ] LVOT VTI 11.36 cm AoR Diam MM 3.58 cm [ 3.10 - 3.70 ] MV E Peak Jeremi 0.46 m/s [ 0.60 - 1.30 ] ACS MM 1.59 cm [ 1.50 - 2.60 ] MV A Peak Jeremi 0.90 m/s [ 1.00 - 1.20 ] MV Mean PG 1 mmHg MV PHT 73 msec [ 20 - 100 ] MVA PHT 3.01 cm2 PV Peak Jeremi 1.06 m/s [ 0.40 - 0.80 ] TR Peak Jeremi 1.66 m/s [ 1.00 - 2.80 ] TR Peak PG 11 mmHg 2D/MM Value Range Doppler Value Range - FINDINGS: Atrial Septum: Normal atrial septum. Left Ventricle: Normal left ventricular size. Left ventricular wall thickness upper limits of normal. Mild global left ventricular systolic dysfunction. Impaired diastolic relaxation Grade I. Ejection fraction is measured at 45 %. GLS = -16.6%. Left Atrium: The left atrium is normal in size. Right Ventricle: Normal right ventricular size. Normal right ventricular systolic function. Right Atrium: The right atrium is normal in size. Aortic Valve: Normal structure of the aortic valve. Mitral Valve: Mild mitral valve regurgitation. Pulmonic Valve: Normal structure of the pulmonic valve. Tricuspid Valve: Normal structure of the tricuspid valve. Normal right ventricular systolic pressure. Pericardium: Normal pericardium with no significant pericardial effusion. Aorta: Normal aortic root. IVC: Normal size and normal respiratory collapse consistent with normal right atrial pressure (<5 mmHg). Pulmonary Artery: Normal pulmonary artery size. CONCLUSIONS: Normal left ventricular size. Left ventricular wall thickness upper limits of normal. Mild global left ventricular systolic dysfunction. Impaired diastolic relaxation Grade I. Ejection fraction is measured at 45 %. GLS = -16.6%. Mild mitral valve regurgitation. Electronically Signed By: Michael Salcido MD, [facility] 07/26/2025 4:45:49 PM SILO WORKER Procedure Note Michael Salcido MD - 07/26/2025 [employer] [address] [place] [address] Echocardiogram Report Patient Name: FRANCISCO JAVIER [facility] D : 1945 Study Date: 07/26/2025 1:56:25 PM Sex: M Tech: AG Ref Provider: CARLOS BURTON Height(Cm): 182.9 BSA: 1.99 Weight(Kg): 78 Heart Rate: 73 BMI: 23.32 BP: 99/68 Quality: Good Order Provider: CARLOS BURTON PROCEDURES: Echocardiographic Report: Transthoracic echocardiogram with complete 2D, M-Mode, and color Dopplerexamination. INDICATIONS: Atrial Fibrillation, Hyperlipidemia, Hypertension, R55 Syncope andcollapse, and I44.2 Atrioventricular block, complete. MEASUREMENTS: 2D/MM Value Range DopplerValue Range EF Teich 2D 45.0 percent [ 52.0 - 72.0 ] MARLENY Vmax1.62 cm2 EF Mod BP 45 % [ 52 - 72 ] AV Mean PG 4mmHg LVIDd 2D 5.30 cm [ 4.20 - 5.80 ] AV Peak Vel1.42 m/s [ 1.00 - 1.70 ] LVIDs 2D 4.29 cm [ 2.50 - 4.00 ] AV VTI28.81 cm LVPWd 2D 1.18 cm [ 0.60 - 1.00 ] LVOT Diam2.34 cm IVSd 2D 0.94 cm [ 0.60 - 1.00 ] LVOT Peak Vel0.53 m/s [ 0.70 - 1.10 ] LA Dimension MM 3.43 cm [ 3.00 - 4.00 ] LVOT VTI11.36 cm AoR Diam MM 3.58 cm [ 3.10 - 3.70 ] MV E Peak Vel0.46 m/s [ 0.60 - 1.30 ] ACS MM 1.59 cm [ 1.50 - 2.60 ] MV A Peak Vel0.90 m/s [ 1.00 - 1.20 ] MV Mean PG 1 mmHg MV PHT 73 msec [ 20 - 100 ] MVA PHT 3.01 cm2 PV Peak Jeremi 1.06 m/s [ 0.40 - 0.80 ] TR Peak Jeremi 1.66 m/s [ 1.00 - 2.80 ] TR Peak PG 11 mmHg 2D/MM Value Range DopplerValue Range - FINDINGS: Atrial Septum: Normal atrial septum. Left Ventricle: Normal left ventricular size. Left ventricular wall thickness upper limitsof normal. Mild global left ventricular systolic dysfunction. Impaired diastolicrelaxation Grade I. Ejection fraction is measured at 45 %. GLS = -16.6%. Left Atrium: The left atrium is normal in size. Right Ventricle: Normal right ventricular size. Normal right ventricular systolicfunction. Right Atrium: The right atrium is normal in size. Aortic Valve: Normal structure of the aortic valve. Mitral Valve: Mild mitral valve regurgitation. Pulmonic Valve: Normal structure of the pulmonic valve. Tricuspid Valve: Normal structure of the tricuspid valve. Normal right ventricular systolicpressure. Pericardium: Normal pericardium with no significant pericardial effusion. Aorta: Normal aortic root. IVC: Normal size and normal respiratory collapse consistent with normal rightatrial pressure (<5 mmHg). Pulmonary Artery: Normal pulmonary artery size. CONCLUSIONS: Normal left ventricular size. Left ventricular wall thickness upper limitsof normal. Mild global left ventricular systolic dysfunction. Impaired diastolicrelaxation Grade I. Ejection fraction is measured at 45 %. GLS = -16.6%. Mild mitral valve regurgitation. Electronically Signed By: Michael Salcido MD, [facility] 07/26/2025 4:45:49 PM SILO WORKER us Carlos Burton MD CV ECHO PROCEDURES Final Resu lt * DEVICE CHECK - REMOTE (07/19/2025 9:20 AM SILO WORKER) Anatomical Region Laterality Modality Other Narrative 07/22/2025 12:27 PM SILO WORKER Images from the original result were not included. 07/19/2025 [employer] alert The complete report in its entirety is attached to this Result Text in Cap Lining Machine Operator Possible heart block Next in office check: August 31 2025 2:1 HB/ CHB noted on loop Patient to be scheduled for DC ppm Patient of RL- He is out until 07/22; SB advised to send to Reviewed By Mone Ohara RN BSN at 11:48 AM Review and Recommendations below (please forward an in-basket message to your MA if check requires attention) ATTESTATION I have reviewed the device interrogation report associated with this encounter in detail. I agree with the documentation recorded/scanned into the electronic medical record. Recommendations: Continue current device follow-up. Claudia Nunez MD us Carlos Burton MD CV CARDIAC SERVICES PROCEDURE S Final Result * DEVICE CHECK - REMOTE (07/09/2025 8:02 AM SILO WORKER) Anatomical Region Laterality Modality Other Narrative 07/12/2025 7:56 AM SILO WORKER Images from the original result were not included. 07/09/2025 [employer] monthly remote device check NOTE The following shows snippets from the complete monthly report. The complete report in its entirety is attached to this Result Text in Cap Lining Machine Operator Last in-office check: May 2025 Next in-office appointment: August 2025 Battery longevity = OK AT/AF burden: 0.0% PVC [place]: 3.0% No events. Continue remote monitoring monthly. Device Nurse Review and Recommendations below Reviewed By Mone Ohara RN BSN at 2:19 PM Review and Recommendations below (please forward an in-basket message to your MA if check requires attention) us Carlos Burton MD CV CARDIAC SERVICES PROCEDURE S Final Result * Portable/Home Sleep Study (07/07/2025) Rin Curry MD - 07/07/2025 HOME SLEEP APNEA TEST HISTORY: Francisco Javier Varner is a 79 y.o. male who presents for Home sleep apnea test. (HSAT). Reason for sleep study: hypertension, syncope, pause and AV block Weight: 172 lbs BMI: 23.33 PROCEDURE: This is a single night diagnostic study. This Home Sleep apnea Test (HSAT) utilized an unattended FDA approved RedbeneSol apnea link home air portable monitoring device investigating for obstructive sleep apnea. The patient was provided instructions of the device and application by the registered electro mechanical technologist at the [facility]. This test was performed without a ct scan special procedures technologist in attendance. In this study, the following parameters were monitored: Negrita-nasal airflow, snoring, chest respiratory effort, abdominal respiratory effort, body position, movement, oxygen saturation, and heart rate. Respiratory events are scored according to the criteria from The [place] [employer] (AASM) Manual for the scoring of sleep and associated events - version 2.6. FINDINGS: The recorded bed time starts at 11:21 pm. The total recording duration is 7:40 hours. The respiratory events (RE) included 27 apneas and 23 hypopneas. The total Respiratory event index (NAVI) was 10.6 per hour. Obstructive apnea index was 4.9, central apnea index was 0.0, mixed apnea index was 0.0. Lowest SpO2 was 52 % and time spent < 88% was 0:14 hours. Oxygen desaturation index was 8.7. Patient spent 4:25 hours in supine and 0:00 hours in non-supine position. Average heart rate was 69/min, minimum heart rate was 40/min, and maximum heart rate was 139/min. INTERPRETATION: This is an adequate quality Home Sleep apnea Test. (HSAT) 1. This home sleep apnea test is positive for mild obstructive sleep apnea with Respiratory Event Index (equivalent of Apnea Hypopnea Index) of 10.6 per hour. 2. Nocturnal hypoxemia was noted with time spend <88 % was 0:14 hours. Lowest SpO2 was 52%. RECOMMENDATIONS: 1. Based on the findings of this home sleep test, the patient has mild obstructive sleep apnea. Treatment with Positive Airway Pressure (PAP) devices such as continuous PAP (CPAP), auto-adjusting PAP (APAP), and bi-level PAP (Bi-PAP) is recommended. In-lab CPAP titration study to determine the optimal pressure required to alleviate sleep disordered breathing is recommended given the significant desaturations. 2. Other treatment options include ENT evaluation for upper airway abnormalities, or mandibular advancement device. 3. Obesity, hypothyroidism or obstructive/structural abnormalities in the upper airway can be contributory to obstructive sleep apnea/hypopnea. An evaluation and management of these factors should be considered. 4. Hypnotics and sedatives can worsen the sleep apnea, hence should be avoided. 5. Patients with sleep apnea may have excessive daytime sleepiness. Patients should avoid driving, if drowsy or sleepy. Limitations of the study: 1. A sleep EEG was not recorded; therefore, the actual amount of time spent in sleep, stages of sleep and respiratory events associated with arousals cannot be determined by this study. 2. All indexes are computed against monitoring time, not total sleep time. For this reason, the degree of severity may be underestimated * Please note: The severity of the sleep apnea may vary from night to night depending on body position during sleep, REM sleep and sleep efficiency. These factors should be taken into consideration. Rin Gustafson MD [facility] Sleep [facility] Narrative Rin Gustafson MD - 07/07/2025 OCST ready for review Carlos Burton MD SLEEP CENTER ORDERABLES Final Result * DEVICE CHECK - IN OFFICE (06/04/2025 11:36 AM CDT) Anatomical Region Laterality Modality Other Narrative 06/13/2025 9:01 PM CDT Images from the original result were not included. 06/04/2025 [employer] in-office device check The complete report is attached to this Result Text in Cap Lining Machine Operator Carlos Burton MD CV CARDIAC SERVICES PROCEDURE S Final Result * DEVICE CHECK - REMOTE (06/04/2025 8:30 AM CDT) Anatomical Region Laterality Modality Other Narrative 06/13/2025 9:21 PM CDT Images from the original result were not included. 06/04/2025 [employer] monthly remote device check NOTE The following shows snippets from the complete monthly report. The complete report in its entirety is attached to this Result Text in Cap Lining Machine Operator Kumar Detection Jun 03, 2025, 8:44:44 PM- [place] Last in-office check: December 2024 Next in-office appointment: December 2025 Battery longevity = OK AT/AF burden 0.0% PVC [place]: 0.2% Patient came into the [facility] office asking if we had anything on his monitor from Saturday05/31/2025 states he passed out. The only thing we have on his monitor is Saturday @12:47am he had a low HR of 35 but he goes to bed around 10:30pm Update: Patient had device check in office and it showed pauses. Per [place] Burton reviewed the device interrogation done today. Patient will need dual chamber permanent pacemaker as soon as it is able to be scheduled-- after further review, he will get a sleep study first to rule out GILDA. Continue remote monitoring monthly. *no pause alerts came through on recordings [facility] is working on ppm workup Reviewed By Mone Ohara REPRODUCTIVE HEALTHCARE ASSISTANT at 1:36 PM MD Review and Recommendations below (please forward an in-basket message to your MA if check requires attention) us Carlos Burton MD CV CARDIAC SERVICES PROCEDURE S Final Result * COLONOSCOPY (01/21/2023 12:44 PM CDT) Anatomical Region Laterality Modality Other Narrative Procedure Note Fran Gramajo MD - 01/21/2023 12:44 PM CDT [facility] Patient Name: Francisco Javier Varner Procedure Date: 01/21/2023 12:44 PM Date of : 1945 Admit Type: Outpatient Age: 77 Gender: Male Attending MD: Fran Gramajo M.D. Room: [facility] RO[facility] 1 Note Status: Finalized Patient Profile: This is a 77 year old male. History of polyps inthe past. No family history of colon cancer per Procedure: Colonoscopy Indications: High risk colon cancer surveillance: Personalhistory of colonic polyps, Last colonoscopy: January 2019 Referring MD: Jerson Burton M.D. Providers: Fran Gramajo M.D. Impression: - Three 6 to 10 mm polyps in the sigmoid colon andin the descending colon, removed with a cold snare. Resected and retrieved. Clips were placed. Clip restorative coordinator: [employer]. - Diverticulosis in the sigmoid colon. - Internal hemorrhoids. Recommendation: - Await pathology results. - Repeat colonoscopy in 3 years for screeningpurposes. - Continue present medications. Resume Coumadintonight Medicines: Monitored Anesthesia Care Complications: No immediate complications. Estimated Blood Loss: Estimated blood loss: none. Procedure: Pre-Anesthesia Assessment: - Prior to the procedure, a History and Physicalwas performed, and patient medications and allergieswere reviewed. The patient's tolerance of previous anesthesia was also reviewed. The risks andbenefits of the procedure and the sedation options and risks were discussed with the patient. All questions were answered, and informed consent was obtained. Prior Anticoagulants: The patient has taken Coumadin (warfarin), last dose was 5 days prior toprocedure. ASA Grade Assessment: III - A patient with severe systemic disease. After reviewing the risks and benefits, the patient was deemed in satisfactory condition to undergo the procedure. - Prior to the procedure, a History and Physicalwas performed, and patient medications and allergieswere reviewed. The patient's tolerance of previous anesthesia was also reviewed. The risks andbenefits of the procedure and the sedation options and risks were discussed with the patient. All questions were answered, and informed consent was obtained. Prior Anticoagulants: The patient has taken Coumadin (warfarin), last dose was 5 days prior toprocedure. ASA Grade Assessment: III - A patient with severe systemic disease. After reviewing the risks and benefits, the patient was deemed in satisfactory condition to undergo the procedure. The benefits, risks and alternatives of theprocedure and sedation were discussed and informed consentwas obtained. All questions were answered. Please referto the signed informed consent document in the medical record. The scope was passed under direct vision.The Pediatric Colonoscope PCF-H190L [id number] was introduced through the anus and advanced to the the cecum, identified by appendiceal orifice andileocecal valve. The bowel preparation used was Miralax and bisacodyl tablets via split dose instruction. The quality of the bowel preparation was good. Bowelprep was administered using a split dose. Findings: The perianal and digital rectal examinations were normal. The cecum appeared normal. The transverse colon and ascending colon appeared normal. Three sessile polyps were found in the sigmoid colon and descending colon. The polyps were 6 to 10 mm in size. These polyps were removed with a cold snare. Resection and retrieval were complete. To prevent bleeding after the polypectomy, two hemostatic clips weresuccessfully placed. Clip restorative coordinator: [employer]. There was no bleedingat the end of the procedure. A few medium-mouthed diverticula were found in the sigmoid colon. Internal hemorrhoids were found during retroflexion. The hemorrhoids were medium-sized. Electronically signed by Fran Gramajo M.D. Fran Gramajo M.D. 01/21/2023 1:37:05 PM Number of Addenda: 0 Note Initiated On: 01/21/2023 12:44 PM Procedure Code(s): --- Professional --- 59116, Colonoscopy, flexible; with removal of tumor(s), polyp(s), or other lesion(s) by snare technique Diagnosis Code(s): --- Professional --- Z86.010, Personal history of colonic polyps K64.8, Other hemorrhoids D12.5, Benign neoplasm of sigmoid colon D12.4, Benign neoplasm of descending colon K57.30, Diverticulosis of large intestine without perforation orabscess without bleeding CPT copyright 2020 [place] [employer]. All rights reserved. The codes documented in this report are preliminary and upon manager automotive reviewmay be revised to meet current compliance requirements. Recognized by the [place] [employer] for promoting quality in endoscopy Fran Gramajo MD ENDOSCOPY PROCEDURES Final Result from Last 3 Months or Most Recently Relevant to Health Maintenance Insurance MEDICARE [facility] [email or web address] [place] [facility] MEDICARE [employer] [place] MEDICARE [place] [employer] [place] [employer] IDPA MEDICARE MEDICARE [facility] Advance Directives For more information, please contact: [phone] * Full Code (Latest Code Status on File) Date Activated Date Inactivated Comments 09/28/2024 2:17 PM 09/30/2024 6:58 PM * Full Code Date Activated Date Inactivated Comments 01/21/2023 12:19 PM 01/21/2023 6:52 PM * Full Code Date Activated Date Inactivated Comments 01/21/2023 12:19 PM 01/21/2023 12:19 PM * Full Code Date Activated Date Inactivated Comments 12/21/2022 11:13 PM 12/25/2022 7:31 PM * Full Code Date Activated Date Inactivated Comments 06/23/2020 9:42 AM 06/23/2020 3:53 PM Care Teams Fertilizing Machine Operator Relationship Specialty Start Date End Date Jerson Burton MD PCP - General Internal Medicine 01/21/23 Jerson Burton MD Internal Medicine 08/03/21 Fran Gramajo MD Consulting Physician Gastroenterology 12/25/22
--- OUTSIDE RECORDS SUMMARY | 2025-08-11 14:19 | XMS_ITS | Data Portability ---
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 Name Role Phone LISBETH BURTON Primary Care Provider Assessment Encounter Date Assessment Date Assessment LastModified by Organization Details LastModified Time 02/07/2023 02/07/2023 Compression sock s immunizations and preventive measures ordered where agreeable and patient appropriate follow-up me in 4 months INR 2.2 no change in Coumadin [email or web address] Not available 02/19/2023 22:10:53 06/17/2023 06/17/2023 Orders given for his anticoagulation blood work has been ordered as well continue current therapy follow-up in 4 months [email or web address] Not available 06/20/2023 22:52:05 Plan of Treatment Reminders Order Date Submit Date Provider Last Modified By Organization Details Last Modified Time Details Appointments None recorded . Lab PSA, serum or plasma 023 06/17/20 23 [facility] (Lab), [address] [place], [address], 4 16:06:29 PT/INR 023 06/17/20 23 [email or web address] [facility] Internal Med [address] , [address] [facility], [place], [address], 3 14:10:55 CMP, serum or plasma 023 06/17/20 23 [facility] (Lab), [address] [place], [address], 4 12:18:22 CBC w/ auto diff 023 06/17/20 23 [facility] (Lab), [address] [place], [address], 4 12:24:37 lipid panel, serum 023 06/17/20 23 [facility] (Lab), [address] [place], [address], 4 12:18:42 PT/INR 023 02/08/20 23 [email or web address] [facility] Internal Med [address], [address] [facility], [place], [address], 3 22:11:20 Referral None recorded . Procedures None recorded . Surgeries None recorded . Imaging None recorded . Medication Orders None recorded . Patient TargetsNo targets recorded. Patient Instructions Encounter Date Encounter Id Patient Instructions Last Modified By Organization Details Last Modified Time 02/07/2023 [id number] dementia rating scale-2* [email or web address] Not available 02/19/2023 22:11:20 depression screening* [email or web address] Not available 02/19/2023 22:11:20 alcohol misuse* [email or web address] Not available 02/19/2023 22:11:20 multi-dimensiona l health assessment questionnaire* [email or web address] Not available 02/19/2023 22:11:20 Personalized [facility] Plan and Screening Recommendations Advance Directives - Do you have one? Yes Advance Directives - Do we have your advance directive on file in your health record? No, please bring in a copy at your earliest convenience Primary Prevention/Interven tion (prevents or decreases the chance of common diseases from occurring) Smoking Risk: Non Smoker I have no recommendations. Alcohol Misuse Screening: Negative I have no recommendations. Weight: Appropriate Physical activity: Need more exercise/physical activity minimum of 10-20 minutes of activity that causes mild breathlessness/day Nutrition: Average Refer to attached handout Heart-Healthy Diet: After Your Visit Fall Risk (screened today): Low Refer to attached handout Preventing Falls: After your Visit Vaccines Pneumococcal: No further needed Influenza: Your next one in the fall of this year Chronic Disease Risks Stroke: Intermediate Risk Continue current treatment plan Heart Attack: Intermediate Risk Continue current treatment plan Clogging of the Arteries: Intermediate Risk Continue current treatment plan Diabetes: Low Risk I have no recommendations Secondary Prevention/Interven tion (detects treatable diseases before they may cause symptoms, disability, or ) Prostate Cancer Screening: PSA recommended No digital rectal exam screening necessary Colon Cancer Screening: Colonoscopy In: 01/22/2026 Date Screening Last Performed: 01/21/23 with repeat recommendation for 3 years Eye Disease Screening: Your next exam in: 01/2024 Dementia Risk: Low I have no recommendations Depression Screening: Negative I have no recommendations. Not available 02/07/2023 11:59:46 Reason for Referral None Reported. Results Created Date Observation Date Name Description Value Unit Range Abnormal Flag Note LastModifiedBy Organization Detail LastModifiedTime 01/18/20 22 01/17/2022 PT/IN R PT 26.7 Not Available [facility] Internal Med [facility] [address], [address], 01/17/2022 12:02:28 01/18/20 22 01/17/2022 PT/IN R INR 2.2 Not Available [facility] Internal Med [facility] [address] [facility] [address], [place], [address], 01/17/2022 12:02:28 03/26/20 22 03/26/2022 PT/IN R PT 23.7 Not Available [facility] Internal Med [facility] [address] [facility] [address], [place], [address], 03/26/2022 10:37:23 03/26/20 22 03/26/2022 PT/IN R INR 2.0 Not Available [facility] Internal Med [facility] [address] [facility] [address], [place], [address], 03/26/2022 10:37:23 09/13/19 23 09/13/2022 PT/IN R PT 24.9 Not Available [facility] Internal Med [address], [place], [address], 09/13/2022 11:49:56 09/13/19 23 09/13/2022 PT/IN R INR 2.1 Not Available [facility] Internal Med [address], [place], [address], 09/13/2022 11:49:56 10/11/19 23 10/11/2022 PT/IN R PT 33.9 Not Available [facility] Internal [facility] [address], [place], [address], 10/11/2022 12:26:43 10/11/19 23 10/11/2022 PT/IN R INR 2.8 Not Available [facility] Internal Med [address], [place], [address], 10/11/2022 12:26:43 01/02/20 23 01/01/2023 PT/IN R PT 15.5 Not Available [facility] [address], [place], [address], 01/01/2023 11:21:32 01/02/20 23 01/01/2023 PT/IN R INR 1.3 Not Available [facility] [address], [place], [address], 01/01/2023 11:21:32 02/08/20 23 02/07/2023 PT/IN R PT 26.9 Not Available [facility] [address], [place], [address], 02/07/2023 15:38:01 02/08/20 23 02/07/2023 PT/IN R INR 2.2 Not Available [facility] Internal Med [facility] [address], [place], [address], 02/07/2023 15:38:01 04/16/20 23 04/16/2023 PT/IN R PT 39.1 Not Available [facility] Internal Med [facility] [address], [place], [address], 04/16/2023 12:02:27 04/16/20 23 04/16/2023 PT/IN R INR 3.3 Not Available [facility] Internal Med [facility] [address], [place], [address], 04/16/2023 12:02:27 06/17/20 23 06/17/2023 PT/IN R PT 35.2 Not Available [facility] Internal Med [facility] [address], [place], [address], 06/17/2023 12:34:27 06/17/20 23 06/17/2023 PT/IN R INR 2.9 Not Available [facility] Internal Med [facility] [address], [place], [address], 06/17/2023 12:34:27 08/27/19 24 08/27/2023 COMPR EHENS CINTIA METAB OLIC PANEL sodium 141 mmol/ L 137-14 5 Not Available [facility] (Lab) [address], [place], [address], 08/27/2023 12:18:22 08/27/19 24 08/27/2023 COMPR EHENS CINTIA METAB OLIC PANEL potassium 4.3 mmol/ L 3.5-5. 1 Not Available [facility] (Lab) [address], [place], [address], 08/27/2023 12:18:22 08/27/19 24 08/27/2023 COMPR EHENS CINTIA METAB OLIC PANEL chloride 100 mmol/ L 98-107 Not Available [facility] (Lab) [address] [place], [address], 08/27/2023 12:18:22 08/27/19 24 08/27/2023 COMPR EHENS CINTIA METAB OLIC PANEL carbon dioxide 34 mmol/ L 22-30 high Not Available [facility] (Lab) [address] [place], [address], 08/27/2023 12:18:22 08/27/19 24 08/27/2023 COMPR EHENS CINTIA METAB OLIC PANEL anion gap 11.3 mmol/ L 14-22 low Not Available [facility] (Lab) [address] [place], [address], 08/27/2023 12:18:22 08/27/19 24 08/27/2023 COMPR EHENS CINTIA METAB OLIC PANEL glucose 129 mg/dL 70-99 high Not Available [facility] (Lab) [address] [place], [address], 08/27/2023 12:18:22 08/27/19 24 08/27/2023 COMPR EHENS CINTIA METAB OLIC PANEL BUN 23 mg/dL 8-19 high Not Available [facility] (Lab) [address] [place], [address], 08/27/2023 12:18:22 08/27/19 24 08/27/2023 COMPR EHENS CINTIA METAB OLIC PANEL creatinine 1.12 mg/dL 0.66-1 .25 Not Available [facility] (Lab) [address] [place], [address], 08/27/2023 12:18:22 08/27/19 24 08/27/2023 COMPR EHENS CINTIA METAB OLIC PANEL GFR >60 Refer ence Range : [place] GFR Healt hy Adult : >60 mL/mi n/1.7 3 m2 Chron ic Kidne y Disea se: 15-60 mL/mi n/1.7 3 m2 Kidne y Failu re: <15/m L/min /1.73 m2 www.n iddk. nih.g ov The MDRD study equat ion has not been valid ated in child josé miguel <18 years of age; pregn ant women ; the elder ly >85 years of age; or in some racia l or ethni c subgr oups, such as Hispa nics. Outsi de the valid ated satish eters , estim ated GFR is less accur ate, requi ring clini prasad judgm ent on a case- by-ca se basis . Clini prasad inter preta tion for other races and ages must be made by the clini koby. The MDRD study equat ion has not been valid ated for the evalu ation of serum creat inine relat ed to nutri romero l statu s or medic ation usage . For perso ns <18 years of age, a pedia tric GFR calcu lator is avail able on the [facility] websi te: https ://patito w.kid mikhail.o rg/pr ofess ional s/kdo qi/gf r_cal culat or Not Available [facility] (Lab) [address] [place], [address], 08/27/2023 12:18:22 08/27/19 24 08/27/2023 COMPR EHENS CINTIA METAB OLIC PANEL alkaline phosphatase 93 U/L 38-126 Not Available [facility] (Lab) [address] [place], [address], 08/27/2023 12:18:22 08/27/19 24 08/27/2023 COMPR EHENS CINTIA METAB OLIC PANEL alanine aminotransfe rase 7 U/L 0-50 Not Available [facility] (Lab) [address] [place], [address], 08/27/2023 12:18:22 08/27/19 24 08/27/2023 COMPR EHENS CINTIA METAB OLIC PANEL aspartate aminotransfe rase 29 U/L 15-46 Not Available [facility] (Lab) [address] [place], [address], 08/27/2023 12:18:22 08/27/19 24 08/27/2023 COMPR EHENS CINTIA METAB OLIC PANEL bilirubin, total 0.60 mg/dL 0.20-1 .30 Not Available [facility] (Lab) [address] [place], [address], 08/27/2023 12:18:22 08/27/19 24 08/27/2023 COMPR EHENS CINTIA METAB OLIC PANEL calcium 9.1 mg/dL 8.4-10 .2 Not Available [facility] (Lab) [address] [place], [address], 08/27/2023 12:18:22 08/27/19 24 08/27/2023 COMPR EHENS CINTIA METAB OLIC PANEL total protein 6.6 g/dL 6.3-8. 2 Not Available [facility] (Lab) [address] [place], [address], 08/27/2023 12:18:22 08/27/19 24 08/27/2023 COMPR EHENS CINTIA METAB OLIC PANEL albumin 3.8 g/dL 3.0-4. 4 Not Available [facility] (Lab) [address] [place], [address], 08/27/2023 12:18:22 08/27/19 24 08/27/2023 COMPR EHENS CINTIA METAB OLIC PANEL globulin 2.8 g/dL 2.6-4. 2 Not Available [facility] (Lab) [address] [place], [address], 08/27/2023 12:18:22 08/27/19 24 08/27/2023 COMPR EHENS CINTIA METAB OLIC PANEL A/G ratio 1.4 ratio 1.0-2. 0 Not Available [facility] (Lab) [address] [place], [address], 08/27/2023 12:18:22 08/27/19 24 08/27/2023 LIPID PANEL cholesterol 133 mg/dL 140-19 9 low NIH DOV NSUS RECOM MENDA TION FOR CHICHI STERO L: ADULT CHILD LOW RISK: <200 <170 BORDE RLINE : <200- 239 ----- HIGH RISK: >240 >200 Not Available [facility] (Lab) [address] [place], [address], 08/27/2023 12:18:42 08/27/19 24 08/27/2023 LIPID PANEL triglyceride s 80 mg/dL 0-150 NIH DOV NSUS REPOR T RECOM MENDA TION FOR TRIGL YCERI PAOLA: ADULT CHILD LOW RISK: <150 ----- BODER LINE: 150-1 99 ----- HIGH RISK: >200 ----- Not Available [facility] (Lab) [address] [place], [address], 08/27/2023 12:18:42 08/27/19 24 08/27/2023 LIPID PANEL HDL cholesterol 50 mg/dL 40- Not Available [facility] (Lab) [address] [place], [address], 08/27/2023 12:18:42 08/27/19 24 08/27/2023 LIPID PANEL LDL cholesterol, calculated 67 mg/dL 0-130 NIH DOV NSUS REPOR T RECOM MENDA TIONS FOR LDL: ADULT CHILD LOW RISK <130 <110 (OPTI MAL LDL) <100 ----- BORDE RLINE : 130-1 59 ----- HIGH RISK: >160 >130 A TRIGL YCERI DE RESUL T >400 INVAL IDATE S THE CALCU LATIO N FOR LDL FRACT IONAT ION - THE LDL RESUL T WILL NOT BE REPOR JANAY. Not Available [facility] (Lab) [address] [place], [address], 08/27/2023 12:18:42 08/27/19 24 08/27/2023 CBC/C OMPLE TE BLD COUNT W/DIF F white blood cells 6.1 x10'3 /uL 4.2-10 .8 Not Available [facility] (Lab) [address] [place], [address], 08/27/2023 12:24:37 08/27/19 24 08/27/2023 CBC/C OMPLE TE BLD COUNT W/DIF F red blood cells 4.65 x10'6 /uL 4.10-5 .80 Not Available [facility] (Lab) [address] [place], [address], 08/27/2023 12:24:37 08/27/19 24 08/27/2023 CBC/C OMPLE TE BLD COUNT W/DIF F hemoglobin 15.4 g/dL 13.2-1 7.0 Not Available [facility] (Lab) [address] [place], [address], 08/27/2023 12:24:37 08/27/19 24 08/27/2023 CBC/C OMPLE TE BLD COUNT W/DIF F hematocrit 48.4 % 39.3-5 0.0 Not Available [facility] (Lab) [address] [place], [address], 08/27/2023 12:24:37 08/27/19 24 08/27/2023 CBC/C OMPLE TE BLD COUNT W/DIF F mean red cell volume 104.1 fL 80.0-9 7.0 high Not Available [facility] (Lab) [address] [place], [address], 08/27/2023 12:24:37 08/27/19 24 08/27/2023 CBC/C OMPLE TE BLD COUNT W/DIF F mean red cell hemoglobin 33.1 pg 27.0-3 3.0 high Not Available [facility] (Lab) [address] [place], [address], 08/27/2023 12:24:37 08/27/19 24 08/27/2023 CBC/C OMPLE TE BLD COUNT W/DIF F mean RBC HGB concentratio n 31.8 g/dL 31.0-3 6.0 Not Available [facility] (Lab) [address] [place], [address], 08/27/2023 12:24:37 08/27/19 24 08/27/2023 CBC/C OMPLE TE BLD COUNT W/DIF F red cell distribution width 14.4 % 11.8-1 5.5 Not Available [facility] (Lab) [address] [place], [address], 08/27/2023 12:24:37 08/27/19 24 08/27/2023 CBC/C OMPLE TE BLD COUNT W/DIF F platelets 178 x10'3 /uL 150-40 0 Not Available [facility] (Lab) [address] [place], [address], 08/27/2023 12:24:37 08/27/19 24 08/27/2023 CBC/C OMPLE TE BLD COUNT W/DIF F mean platelet volume 10.2 fL 9.0-12 .4 Not Available [facility] (Lab) [address] [place], [address], 08/27/2023 12:24:37 08/27/19 24 08/27/2023 CBC/C OMPLE TE BLD COUNT W/DIF F neutrophils 63.2 % 39.0-7 2.0 Not Available [facility] (Lab) [address] [place], [address], 08/27/2023 12:24:37 08/27/19 24 08/27/2023 CBC/C OMPLE TE BLD COUNT W/DIF F lymphocytes 21.0 % 16.0-4 7.0 Not Available [facility] (Lab) [address] [place], [address], 08/27/2023 12:24:37 08/27/19 24 08/27/2023 CBC/C OMPLE TE BLD COUNT W/DIF F monocytes 8.8 % 5.0-12 .0 Not Available [facility] (Lab) [address] [place], [address], 08/27/2023 12:24:37 08/27/19 24 08/27/2023 CBC/C OMPLE TE BLD COUNT W/DIF F eosinophils 4.6 % 1.0-7. 0 Not Available [facility] (Lab) [address] [place], [address], 08/27/2023 12:24:37 08/27/19 24 08/27/2023 CBC/C OMPLE TE BLD COUNT W/DIF F basophils 1.7 % 0.0-2. 0 Not Available [facility] (Lab) [address] [place], [address], 08/27/2023 12:24:37 08/27/19 24 08/27/2023 CBC/C OMPLE TE BLD COUNT W/DIF F immature granulocytes 0.7 % 0.00-0 .50 high Not Available [facility] (Lab) [address] [place], [address], 08/27/2023 12:24:37 08/27/19 24 08/27/2023 CBC/C OMPLE TE BLD COUNT W/DIF F neutrophils, absolute count 3.83 x10'3 /uL 1.5-8. 0 Not Available [facility] (Lab) [address] [place], [address], 08/27/2023 12:24:37 08/27/19 24 08/27/2023 CBC/C OMPLE TE BLD COUNT W/DIF F lymphocytes, absolute count 1.27 x10'3 /uL 1.07-3 .43 Not Available [facility] (Lab) [address] [place], [address], 08/27/2023 12:24:37 08/27/19 24 08/27/2023 CBC/C OMPLE TE BLD COUNT W/DIF F monocytes, absolute count 0.53 x10'3 /uL 0.29-0 .99 Not Available [facility] (Lab) [address] [place], [address], 08/27/2023 12:24:37 08/27/19 24 08/27/2023 CBC/C OMPLE TE BLD COUNT W/DIF F eosinophils, absolute count 0.28 x10'3 /uL 0.02-0 .53 Not Available [facility] (Lab) [address] [place], [address], 08/27/2023 12:24:37 08/27/19 24 08/27/2023 CBC/C OMPLE TE BLD COUNT W/DIF F basophils, absolute count 0.10 x10'3 /uL 0.01-0 .08 high Not Available [facility] (Lab) [address] [place], [address], 08/27/2023 12:24:37 08/27/19 24 08/27/2023 CBC/C OMPLE TE BLD COUNT W/DIF F immature granulocytes ,absolute 0.04 x10'3 /uL 0.00-0 .05 Not Available [facility] (Lab) [address] [place], [address], 08/27/2023 12:24:37 08/27/19 24 08/27/2023 CBC/C OMPLE TE BLD COUNT W/DIF F nucleated red blood cells 0.0 % -0 Not Available [facility] (Lab) [address] [place], [address], 08/27/2023 12:24:37 08/27/19 24 08/27/2023 CBC/C OMPLE TE BLD COUNT W/DIF F NRBC# 0.00 x10'3 /uL Not Available [facility] (Lab) [address], [place], [address], 08/27/2023 12:24:37 08/27/19 24 08/27/2023 PSA SCREE N PSA medicare screen 0.56 NG/mL 0.00-4 .00 Not Available [facility] (Lab) [address] [place], [address], 08/27/2023 12:56:08 08/27/19 24 08/27/2023 PT/IN R PT 36.2 Not Available [facility] [address] [facility] [address], [place], [address], 08/27/2023 12:40:29 08/27/19 24 08/27/2023 PT/IN R INR 3.0 Not Available [facility] [address] [facility] [address], [place], [address], 08/27/2023 12:40:29 04/17/20 24 04/17/2024 CBC/C OMPLE TE BLD COUNT W/DIF F white blood cells 6.0 x10'3 /uL 4.2-10 .8 Not Available [facility] (Lab) [address] [place], [address], 04/17/2024 13:03:02 04/17/20 24 04/17/2024 CBC/C OMPLE TE BLD COUNT W/DIF F red blood cells 4.73 x10'6 /uL 4.10-5 .80 Not Available [facility] (Lab) [address] [place], [address], 04/17/2024 13:03:02 04/17/20 24 04/17/2024 CBC/C OMPLE TE BLD COUNT W/DIF F hemoglobin 15.5 g/dL 13.2-1 7.0 Not Available [facility] (Lab) [address] [place], [address], 04/17/2024 13:03:02 04/17/20 24 04/17/2024 CBC/C OMPLE TE BLD COUNT W/DIF F hematocrit 47.3 % 39.3-5 0.0 Not Available [facility] (Lab) [address] [place], [address], 04/17/2024 13:03:02 04/17/20 24 04/17/2024 CBC/C OMPLE TE BLD COUNT W/DIF F mean red cell volume 100.0 fL 80.0-9 7.0 high Not Available [facility] (Lab) [address] [place], [address], 04/17/2024 13:03:02 04/17/20 24 04/17/2024 CBC/C OMPLE TE BLD COUNT W/DIF F mean red cell hemoglobin 32.8 pg 27.0-3 3.0 Not Available [facility] (Lab) [address] [place], [address], 04/17/2024 13:03:02 04/17/20 24 04/17/2024 CBC/C OMPLE TE BLD COUNT W/DIF F mean RBC HGB concentratio n 32.8 g/dL 31.0-3 6.0 Not Available [facility] (Lab) [address] [place], [address], 04/17/2024 13:03:02 04/17/20 24 04/17/2024 CBC/C OMPLE TE BLD COUNT W/DIF F red cell distribution width 14.4 % 11.8-1 5.5 Not Available [facility] (Lab) [address] [place], [address], 04/17/2024 13:03:02 04/17/20 24 04/17/2024 CBC/C OMPLE TE BLD COUNT W/DIF F platelets 162 x10'3 /uL 150-40 0 Not Available [facility] (Lab) [address] [place], [address], 04/17/2024 13:03:02 04/17/20 24 04/17/2024 CBC/C OMPLE TE BLD COUNT W/DIF F mean platelet volume 10.1 fL 9.0-12 .4 Not Available [facility] (Lab) [address] [place], [address], 04/17/2024 13:03:02 04/17/20 24 04/17/2024 CBC/C OMPLE TE BLD COUNT W/DIF F neutrophils 61.7 % 39.0-7 2.0 Not Available [facility] (Lab) [address] [place], [address], 04/17/2024 13:03:02 04/17/20 24 04/17/2024 CBC/C OMPLE TE BLD COUNT W/DIF F lymphocytes 22.3 % 16.0-4 7.0 Not Available [facility] (Lab) [address] [place], [address], 04/17/2024 13:03:02 04/17/20 24 04/17/2024 CBC/C OMPLE TE BLD COUNT W/DIF F monocytes 10.6 % 5.0-12 .0 Not Available [facility] (Lab) [address] [place], [address], 04/17/2024 13:03:02 04/17/20 24 04/17/2024 CBC/C OMPLE TE BLD COUNT W/DIF F eosinophils 3.9 % 1.0-7. 0 Not Available [facility] (Lab) [address] [place], [address], 04/17/2024 13:03:02 04/17/20 24 04/17/2024 CBC/C OMPLE TE BLD COUNT W/DIF F basophils 1.0 % 0.0-2. 0 Not Available [facility] (Lab) [address] [place], [address], 04/17/2024 13:03:02 04/17/20 24 04/17/2024 CBC/C OMPLE TE BLD COUNT W/DIF F immature granulocytes 0.5 % 0.00-0 .50 Not Available [facility] (Lab) [address] [place], [address], 04/17/2024 13:03:02 04/17/20 24 04/17/2024 CBC/C OMPLE TE BLD COUNT W/DIF F neutrophils, absolute count 3.68 x10'3 /uL 1.5-8. 0 Not Available [facility] (Lab) [address] [place], [address], 04/17/2024 13:03:02 04/17/20 24 04/17/2024 CBC/C OMPLE TE BLD COUNT W/DIF F lymphocytes, absolute count 1.33 x10'3 /uL 1.07-3 .43 Not Available [facility] (Lab) [address] [place], [address], 04/17/2024 13:03:02 04/17/20 24 04/17/2024 CBC/C OMPLE TE BLD COUNT W/DIF F monocytes, absolute count 0.63 x10'3 /uL 0.29-0 .99 Not Available [facility] (Lab) [address] [place], [address], 04/17/2024 13:03:02 04/17/20 24 04/17/2024 CBC/C OMPLE TE BLD COUNT W/DIF F eosinophils, absolute count 0.23 x10'3 /uL 0.02-0 .53 Not Available [facility] (Lab) [address] [place], [address], 04/17/2024 13:03:02 04/17/20 24 04/17/2024 CBC/C OMPLE TE BLD COUNT W/DIF F basophils, absolute count 0.06 x10'3 /uL 0.01-0 .08 Not Available [facility] (Lab) [address] [place], [address], 04/17/2024 13:03:02 04/17/20 24 04/17/2024 CBC/C OMPLE TE BLD COUNT W/DIF F immature granulocytes ,absolute 0.03 x10'3 /uL 0.00-0 .05 Not Available [facility] (Lab) [address] [place], [address], 04/17/2024 13:03:02 04/17/20 24 04/17/2024 CBC/C OMPLE TE BLD COUNT W/DIF F nucleated red blood cells 0.0 % -0 Not Available [facility] (Lab) [address] [place], [address], 04/17/2024 13:03:02 04/17/20 24 04/17/2024 CBC/C OMPLE TE BLD COUNT W/DIF F NRBC# 0.00 x10'3 /uL Not Available [facility] (Lab) [address] [place], [address], 04/17/2024 13:03:02 04/17/20 24 04/17/2024 PROTI ME W/INR protime 25.0 secon ds 9.4-11 .9 high Not Available [facility] (Lab) [address] [place], [address], 04/17/2024 13:12:07 04/17/20 24 04/17/2024 PROTI ME W/INR INR 2.5 INR INDIC ATION S 2.0 - 3.0 PROPH YLAXI S: VENOU S THROM BOSIS (HIGH RISK SURGE RY) AND SYSTE ETHAN EMBOL ISM (TISS UE HEART VALVE S, AMI VALVU LAR HEART DISEA SE AND ATRIA L FIBRI LLATI ON). TREAT MENT: VENOU S THROM BOSIS AND PULMO NARY EMBOL ISM BILEA FLET MECHA NICAL VALVE S IN AORTI C POSIT ION. 2.5 - 3.5 MECHA NICAL PROST HETIC HEART VALVE S (TILT ING DISK VALVE S AND BILEA FLET MECHA NICAL VALVE S IN ALYSIA L POSIT ION). PREVE NTION OF RECUR RENT MYOCA RDIAL INFAR CTION . ANTIP HOSPH OLIPI D SYNDR OME. Not Available [facility] (Lab) [address] [place], [address], 04/17/2024 13:12:07 04/17/20 24 04/17/2024 LIPID PANEL cholesterol 148 mg/dL 140-19 9 NIH DOV NSUS RECOM MENDA TION FOR CHICHI STERO L: ADULT CHILD LOW RISK: <200 <170 BORDE RLINE : <200- 239 ----- HIGH RISK: >240 >200 Not Available [facility] (Lab) [address] [place], [address], 04/17/2024 13:36:54 04/17/20 24 04/17/2024 LIPID PANEL triglyceride s 155 mg/dL 0-150 high NIH DOV NSUS REPOR T RECOM MENDA TION FOR TRIGL YCERI PAOLA: ADULT CHILD LOW RISK: <150 ----- BODER LINE: 150-1 99 ----- HIGH RISK: >200 ----- Not Available [facility] (Lab) [address] [place], [address], 04/17/2024 13:36:54 04/17/20 24 04/17/2024 LIPID PANEL HDL cholesterol 52 mg/dL 40- Not Available [facility] (Lab) [address] [place], [address], 04/17/2024 13:36:54 04/17/20 24 04/17/2024 LIPID PANEL LDL cholesterol, calculated 65 mg/dL 0-130 NIH DOV NSUS REPOR T RECOM MENDA TIONS FOR LDL: ADULT CHILD LOW RISK <130 <110 (OPTI MAL LDL) <100 ----- ELIDA RLINE : 130-1 59 ----- HIGH RISK: >160 >130 A TRIGL YCERI DE RESUL T >400 INVAL IDATE S THE CALCU LATIO N FOR LDL FRACT IONAT ION - THE LDL RESUL T WILL NOT BE REPOR JANAY. Not Available [facility] (Lab) [address] [place], [address], 04/17/2024 13:36:54 04/17/20 24 04/17/2024 COMPR EHENS CINTIA METAB OLIC PANEL sodium 138 mmol/ L 137-14 5 Not Available [facility] (Lab) [address] [place], [address], 04/17/2024 13:36:59 04/17/20 24 04/17/2024 COMPR EHENS CINTIA METAB OLIC PANEL potassium 5.2 mmol/ L 3.5-5. 1 high Not Available [facility] (Lab) [address] [place], [address], 04/17/2024 13:36:59 04/17/20 24 04/17/2024 COMPR EHENS CINTIA METAB OLIC PANEL chloride 105 mmol/ L 98-107 Not Available [facility] (Lab) [address] [place], [address], 04/17/2024 13:36:59 04/17/20 24 04/17/2024 COMPR EHENS CINTIA METAB OLIC PANEL carbon dioxide 34 mmol/ L 22-30 high Not Available [facility] (Lab) [address] [place], [address], 04/17/2024 13:36:59 04/17/20 24 04/17/2024 COMPR EHENS CINTIA METAB OLIC PANEL anion gap 4.2 mmol/ L 14-22 low Not Available [facility] (Lab) [address] [place], [address], 04/17/2024 13:36:59 04/17/20 24 04/17/2024 COMPR EHENS CINTIA METAB OLIC PANEL glucose 77 mg/dL 70-99 Not Available [facility] (Lab) [address] [place], [address], 04/17/2024 13:36:59 04/17/20 24 04/17/2024 COMPR EHENS CINTIA METAB OLIC PANEL BUN 23 mg/dL 8-19 high Not Available [facility] (Lab) [address] [place], [address], 04/17/2024 13:36:59 04/17/20 24 04/17/2024 COMPR EHENS CINTIA METAB OLIC PANEL creatinine 1.02 mg/dL 0.66-1 .25 Not Available [facility] (Lab) [address] [place], [address], 04/17/2024 13:36:59 04/17/20 24 04/17/2024 COMPR EHENS CINTIA METAB OLIC PANEL GFR >60 Refer ence Range : [place] ge GFR Healt hy Adult : >60 mL/mi n/1.7 3 m2 Chron ic Kidne y Disea se: 15-60 mL/mi n/1.7 3 m2 Kidne y Failu re: <15/m L/min /1.73 m2 www.n iddk. nih.g ov The MDRD study equat ion has not been valid ated in child josé miguel <18 years of age; pregn ant women ; the elder ly >85 years of age; or in some racia l or ethni c subgr oups, such as Hispa nics. Outsi de the valid ated satish eters , estim ated GFR is less accur ate, requi ring clini prasad judgm ent on a case- by-ca se basis . Clini prasad inter preta tion for other races and ages must be made by the clini koby. The MDRD study equat ion has not been valid ated for the evalu ation of serum creat inine relat ed to nutri romero l statu s or medic ation usage . For perso ns <18 years of age, a pedia tric GFR radhau royal is avail able on the [facility] websi te: https ://patito w.hollis castellanoy.o rg/pr ofess ional s/kdo qi/gf r_cal culat or Not Available [facility] (Lab) [address] [place], [address], 04/17/2024 13:36:59 04/17/20 24 04/17/2024 COMPR EHENS CINTIA METAB OLIC PANEL alkaline phosphatase 101 U/L 38-126 Not Available [facility] (Lab) [address] [place], [address], 04/17/2024 13:36:59 04/17/20 24 04/17/2024 COMPR EHENS CINTIA METAB OLIC PANEL alanine aminotransfe rase 13 U/L 0-50 Not Available [facility] (Lab) [address] [place], [address], 04/17/2024 13:36:59 04/17/20 24 04/17/2024 COMPR EHENS CINTIA METAB OLIC PANEL aspartate aminotransfe rase 32 U/L 15-46 Not Available [facility] (Lab) [address] [place], [address], 04/17/2024 13:36:59 04/17/20 24 04/17/2024 COMPR EHENS CINTIA METAB OLIC PANEL bilirubin, total 0.50 mg/dL 0.20-1 .30 Not Available [facility] (Lab) [address] [place], [address], 04/17/2024 13:36:59 04/17/20 24 04/17/2024 COMPR EHENS CINTIA METAB OLIC PANEL calcium 9.0 mg/dL 8.4-10 .2 Not Available [facility] (Lab) [address] [place], [address], 04/17/2024 13:36:59 04/17/20 24 04/17/2024 COMPR EHENS CINTIA METAB OLIC PANEL total protein 6.5 g/dL 6.3-8. 2 Not Available [facility] (Lab) [address] [place], [address], 04/17/2024 13:36:59 04/17/20 24 04/17/2024 COMPR EHENS CINTIA METAB OLIC PANEL albumin 3.6 g/dL 3.0-4. 4 Not Available [facility] (Lab) [address] [place], [address], 04/17/2024 13:36:59 04/17/20 24 04/17/2024 COMPR EHENS CINTIA METAB OLIC PANEL globulin 2.9 g/dL 2.6-4. 2 Not Available [facility] (Lab) [address] [place], [address], 04/17/2024 13:36:59 04/17/20 24 04/17/2024 COMPR EHENS CINTIA METAB OLIC PANEL A/G ratio 1.2 ratio 1.0-2. 0 Not Available [facility] (Lab) [address] [place], [address], 04/17/2024 13:36:59 02/03/20 22 02/02/2022 MRI, brain , w/wo contr ast No observ ation record ed. [id number] David Tolliver MD [address] [facility], [place], [address], 10/17/2022 05:04:14 04/18/20 22 04/18/2022 CT, abdom en + pelvi s, w/wo contr ast No observ ation record ed. [id number] [facility] [address], [place], [address], 10/17/2022 05:04:14 11/15/19 23 02/09/2019 upper endos copy (EGD) with colon oscop y (PROC ) No observ ation record ed. cyahl Not Available 2022 12:05:26 02/22/20 23 02/21/2023 hector jarquingr am No observ ation record ed. [email or web address] Not Available 05/21 15:43:01 Result Notes None recorded. 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 Trevon Gutierrez Not Available [facility] 4 06:42:51 Anticoagu lant therapy Active 2021 Not Available [facility] 4 06:42:51 Weakness of face muscles 79903028 Active 2021 Not Available [facility] 4 06:42:51 Laborator y test result abnormal 314163806 Active 2023 Not Available [facility] 4 06:42:51 Notes:Some problems listed i n Continuity of Care Document #[id number] could not be added to this patient's chart. Please review this document and add these problems to the patient's chart manually as needed. Problem Notes None recorded. Procedures Surgical History Date Name Laterality Status Provider Name and Address Organization Details Recorded Time 3 Medicare Wellness CPT Code, subsequent completed Brooklyn Rangel RN [place] - [facility] 02/07/2023 11:33:52 7 Dbrdmt subq tis 1st 20sqcm/< completed Not Available [facility] 10/17/2022 04:42:53 Back [facility] 04:42:53 Imaging Results None recorded. Procedure Notes None recorded. Medical Equipment None Reported. Allergies No known drug allergies Medications Name Sig Start Date Stop Date Status Note LastModified by Organization Details LastModified Time furosemid e 40 mg tablet Take 1/2 (one-tod f) tablet by mouth once daily 05/04 completed patient wished to have the 20mg vs 40 mg cut in half. Not Available Not Available Not Available valacyclo vir 1 gram tablet TAKE 1 TABLET BY MOUTH THREE TIMES DAILY 06/08 completed Not Available Not Available Not Available hydrocodo ne 5 mg-acetam inophen 325 mg tablet active Not Available Not Available Not Available Keflex 500 mg capsule Take 1 capsule 3 times a day by oral route for 7 days. 06/03 completed Not Available Not Available Not Available Medrol (Ashish) 4 mg tablets in a dose pack Take 1 package by oral route as directed . 11/01 completed Not Available Not Available Not Available simvastat in 80 mg tablet Take 1 tablet by mouth once daily 2023 active Not Available Not Available Not Avai lable ciproflox acin 500 mg tablet 03/06 completed Not Available Not Available Not Available sulfameth oxazole 800 mg-trimet hoprim 160 mg tablet Take 1 tablet twice a day by oral route. 03/06 completed Not Available Not Available Not Available hydrocodo ne 10 mg-acetam inophen 325 mg tablet Take 1 tablet every 4 hours by oral route. 03/06 completed Not Available Not Available Not Available warfarin 4 mg tablet Take 2 tablets by mouth once daily 2023 active Not Available Not Available Not Avai lable warfarin 3 mg tablet Take 2 tablets by mouth once daily active Not Available Not Available No t Available triflurid ine 1 % eye drops INSTILL 1 DROP INTO LEFT EYE EVERY 2 HOURS WHILE AWAKE 06/08 completed Not Available Not Available Not Available amlodipin e 10 mg tablet TAKE ONE TABLET BY MOUTH ONE TIME DAILY 10/30 completed Not Available Not Available Not Available doxycycli ne monohydra te 100 mg capsule Take 1 capsule twice a day by oral route. 02/23 completed Not Available Not Available Not Available timolol 0.5 % eye drops Instill 1 drop twice a day by ophthalm ic route. 12/09 completed Not Available Not Available Not Available lisinopri l 10 mg tablet Take 1 tablet by mouth once daily 2022 active Not Available Not Available Not Avai lable warfarin 5 mg tablet TAKE ONE TABLET BY MOUTH ONCE DAILY 06/02 completed Not Available Not Available Not Available furosemid e 20 mg tablet Take 1 tablet by mouth once daily 2023 active Not Available Not Available Not Avai lable Levaquin 500 mg tablet Take 1 tablet every 24 hours by oral route as directed for 10 days. 11/01 completed Not Available Not Available Not Available morphine 15 mg soluble tablet 03/06 completed Not Available Not Available Not Available timolol maleate 0.5 % eye drops INSTILL ONE DROP INTO EACH EYE TWICE DAILY active Not Available Not Available No t Available ipratropi um bromide 42 mcg (0.06 %) nasal spray 2sprays each nostril daily active Not Available Not Available No t Available doxycycli ne hyclate 100 mg tablet Take 1 tablet twice a day by oral route. 06/03 completed Not Available Not Available Not Available finasteri de 5 mg tablet TAKE 1 TABLET BY MOUTH ONCE DAILY active Not Available Not Available No t Available amoxicill in 875 mg-potass ium clavulana te 125 mg tablet Take 1 tablet every 12 hours by oral route for 7 days. 03/06 completed Not Available Not Available Not Available esomepraz ole magnesium 20 mg capsule,d elayed release active Not Available Not Available Not Available timolol maleate (PF) 0.5 % eye drops in a dropperet te INSTILL 1 DROP INTO BOTH EYES BY OPHTHALM IC ROUTE ONCE DAILY 12/08 completed dupl Not Available Not Available Not Available Vigamox 0.5 % eye drops 08/07 completed Not Available Not Available Not Available nitrofura ntoin monohydra te/macroc rystals 100 mg capsule Take 1 capsule twice a day by oral route for 7 days. 10/05 completed Not Available Not Available Not Available Nevanac 0.1 % eye drops,valentin pension 08/07 completed Not Available Not Available Not Available docusate calcium 02/23 completed Not Available Not Available Not Available Durezol 0.05 % eye drops 08/07 completed Not Available Not Available Not Available GaviLyte- G 236 gram-22.7 4 gram-6.74 gram-5.86 gram oral solution 05/04 completed Not Available Not Available Not Available Teflaro 600 mg intraveno us solution 06/03 completed Not Available Not Available Not Available Procto-Me d HC 2.5 % topical cream perineal applicato r 12/01 completed Not Available Not Available Not Available Fluzone High-Dose 2018- (PF) 180 mcg/0.5 mL intramusc ular syringe PHARMACI ST ADMINIST ERED IMMUNIZA TION ADMINIST ERED AT TIME OF DISPENSI NG 10/05 completed Not Available Not Available Not Available Vitals Date Recorded Body mass index (BMI) Body height Heart rate Body temperature Body weight Systolic And Diastolic Provider Name and Address Organization Details Last Updated DateTime 3 29.3 kg/m2 180.34 cm 79 /min 97.5 [degF] 89838.4 g 122/84 mm[Hg] Not Available [facility] 3 04:49:27 Date Recorded Body mass index (BMI) Body height Heart rate Body temperature Body weight Systolic And Diastolic Provider Name and Address Organization Details Last Updated DateTime 2 30.4 kg/m2 180.34 cm 62 /min 98 [degF] 86515.1 4 g 134/80 mm[Hg] Not Available [facility] 3 04:49:26 Date Recorded Pain severity - 0-10 verbal numeric rating [Score] - Reported Provider Name and Address Organization Details Last Updated DateTime 02/07/2023 4 Brooklyn Rangel RN [facility] 02/07/2023 11:34:09 Date Recorded Body height Body mass index (BMI) Body weight Body temperature Heart rate Systolic And Diastolic Provider Name and Address Organization Details Last Updated DateTime 3 180.34 cm 28.3 kg/m2 94670.2 5 g 98.2 [degF] 75 /min 120/86 mm[Hg] Ly simeon RN [facility] 3 11:24:29 Date Recorded Body mass index (BMI) Body height Heart rate Body temperature Body weight Systolic And Diastolic Provider Name and Address Organization Details Last Updated DateTime 2 29.4 kg/m2 180.34 cm 82 /min 98.1 [degF] 54764.9 9 g 120/88 mm[Hg] Not Available [facility] 3 04:49:27 Date Recorded Body height Body mass index (BMI) Body weight Body temperature Heart rate Systolic And Diastolic Provider Name and Address Organization Details Last Updated DateTime 3 180.34 cm 27.5 kg/m2 90828.7 g 98.7 [degF] 67 /min 130/80 mm[Hg] DANIS Lira [facility] [facility] 3 12:26:10 Social History Question Answer Notes LastModified by Organization Details LastModified Time Tobacco Smoking Status Former Smoker quit 1995 Not Available [facility] 10/17/2022 04:41:53 Do You Have An Advance Directive? Yes Asked To Bring Copy For Office [id number] Information not available 10/17/2022 Are You Blind Or Do You Have Difficulty Seeing? No MIGRATION.030 [id number] Information not available 10/17/2022 What Is Your Level Of Caffeine Consumption? Moderate MIGRATION.[id number] Information not available 10/17/2022 How Much Tobacco Do You Chew? None MIGRATION.0301 [id number] Information not available 10/17/2022 In The 14 Days Before Symptom Onset, Have You Had Close Contact With A Laboratory-confi rmed COVID-19 While That Case Was Ill? No MIGRATION.030 023391 Information not available 10/17/2022 In The 14 Days Before Symptom Onset, Have You Had Close Contact With A Person Who Is Under Investigation For COVID-19 While That Person Was Ill? No MIGRATION.030 808730 Information not available 10/17/2022 Are You Deaf Or Do You Have Serious Difficulty Hearing? Yes Wears Hearing Aids Information not available 02/07/2023 What Type Of Diet Are You Following? REGULAR MIGRATION.030 234610 Information not available 10/17/2022 Which Illicit Or Recreational Drugs Have You Used? None MIGRATION.030 451806 Information not available 10/17/2022 What Is The Highest Grade Or Level Of School You Have Completed Or The Highest Degree You Have Received? [id number] MIGRATION.030 718219 Information not available 10/17/2022 Have There Been Any Changes To Your Family Or Social Situation? No MIGRATION.030 450571 Information not available 10/17/2022 What Is The Fluoride Status Of Your Home? Fluoridated MIGRATION.0301 169402 Information not available 10/17/2022 When Did You Quit Smoking? 17+yearssincelastc igarette MIGRATION.030 385664 Information not available 10/17/2022 Are There Any Guns Present In Your Home? No MIGRATION.0301 432830 Information not available 10/17/2022 Do You Use Insect Repellent Routinely? No MIGRATION.0301 439182 Information not available 10/17/2022 [facility] MIGRATION.0301 722200 Information not available 10/17/2022 Presence Of Domestic Violence No Information not available 02/07/2023 Guns Present In The Home? No Information not available 02/07/2023 Are You Able To Care For Yourself? Yes Information not available 02/07/2023 Are You Blind Or Do Yo Have Difficulty Seeing? No Information not available 02/07/2023 Are You Deaf Or Do You Have Serious Difficulty Hearing? Yes Wears Hearing Aids Information not available 02/07/2023 General Stress Level? Moderate Information not available 02/07/2023 Live Alone Of With Others? With Others Information not available 02/07/2023 Do You Have A Medical Power Of Co Founder And Ceo? Yes MIGRATION.0301 [id number] Information not available 10/17/2022 What Was The Date Of Your Most Recent Tobacco Screening? 06/17/2023 [id number] Information not available 06/17/2023 Have You Ever Been Counseled For Unhealthy Alcohol Use? No MIGRATION.0301 098226 Information not available 10/17/2022 Do You Have Any Pets? No MIGRATION.0301 471381 Information not available 10/17/2022 What Is Your Relationship Status? Domestic Partner MIGRATION.0301 168884 Information not available 10/17/2022 Do You Use Your Seat Belt Or Car Seat Routinely? Yes MIGRATION.0301 912894 Information not available 10/17/2022 Do You Have Smoke And Carbon Monoxide Detectors In Your Home? Yes MIGRATION.0301 588417 Information not available 10/17/2022 At What Age Did You Start Smoking Tobacco? 15 MIGRATION.0301 805782 Information not available 10/17/2022 Are You Passively Exposed To Smoke? No MIGRATION.0301 264300 Information not available 10/17/2022 Are There Any Smokers In Your House? No MIGRATION.0301 305777 Information not available 10/17/2022 How Much Tobacco Do You Smoke? No Was 2ppd MIGRATION.0301 [id number] Information not available 10/17/2022 What Types Of Sporting Activities Do You Participate In? None MIGRATION.0301 776243 Information not available 10/17/2022 Do You Use Sunscreen Routinely? No MIGRATION.0301 395338 Information not available 10/17/2022 Has Tobacco Cessation Counseling Been Provided? No Information not available 02/07/2023 Have You Recently Traveled Abroad? No MIGRATION.0301 [id number] Information not available 10/17/2022 Do You Have Difficulty Walking Or Climbing Stairs? No MIGRATION.0301 595191 Information not available 10/17/2022 Do You Have Any Dietary Restrictions? No MIGRATION.0301 247821 Information not available 10/17/2022 Sex: Male Functional Status Question Answer Note LastModified by Organizat ion Details LastModified Time Do you use any illicit or recreational drugs? No MIGRATION.68352 66297 Information not available 10/17/2022 Do you or have you ever used any other forms of tobacco or nicotine? No MIGRATION.31305 98995 Information not available 10/17/2022 What is your level of alcohol consumption? Occasional 1-2 times a year MIGRATION.96539 83654 Information not available 10/17/2022 Do you or have you ever used smokeless tobacco? Never used smokeless tobacco MIGRATION.91568 69398 Information not available 10/17/2022 Do you have transportation difficulties? No MIGRATION.40614 19530 Information not available 10/17/2022 Are you able to walk independently without assistance or assistive devices? YESWOREST MIGRATION.73835 90066 Information not available 10/17/2022 Do you have difficulty doing errands alone? No MIGRATION.34418 82347 Information not available 10/17/2022 Are you able to care for yourself independently? Yes MIGRATION.38376 58033 Information not available 10/17/2022 What is your occupation? retired MIGRATION.18790 96970 Information not available 10/17/2022 Do you have difficulty dressing, bathing, grooming, or toileting? No MIGRATION.40985 54484 Information not available 10/17/2022 Do you or have you ever used e-cigarettes or vape? Never used electronic cigarettes MIGRATION.91953 09926 Information not available 10/17/2022 What is your exercise level? None MIGRATION.86309 05886 Information not available 10/17/2022 Mental Status Question Answer Note LastModified by Organizat ion Details LastModified Time Do you feel stressed (tense, restless, nervous, or anxious, or unable to sleep at night)? [id number] MIGRATION.531719 6413 Information not available 10/17/2022 Do you have difficulty concentrating, remembering or making decisions? Yes short term memory problems MIGRATION.307320 8178 Information not available 10/17/2022 Family History Relationship Description Onset Age of this Age Resolved Age Notes LastModified by Organization Details LastModified Time Mother Diabetes mellitus MIGRATION.363 [id number] Not available 10/17/2022 04:43:02 Father Heart disease MIGRATION.647 [id number] Not available 10/17/2022 04:43:02 Medical History Condition Response NERVE DISEASE Y BLINDNESS N RHEUMATIC FEVER N KIDNEY STONES N BLADDER PROBLEMS N MRSA Y OTHER # 1 Y POLIO N LUNG DISEASE/DISORDER N RADIATION / CHEMOTHERAPY N COPD N Other # 2 N BLOOD DISEASES N EAR OR HEARING PROBLEMS N MUMPS N DEPRESSION (INCLUDING POST ) N BOWEL PROBLEMS N STROKE/TIA N ULCERS N BENIGN PROSTATIC HYPERPLASIA N MEASLES N MYOCARDIAL INFARCTION N OBESITY N GERD/NAUSEA N ANEURYSM N URINARY/BLADDER/KIDNEY PROBLEMS N CORONARY ARTERY DISEASE (CAD) N Do you have Advance directive? N ADDICTION CONCERNS N Impotence N ENDOMETRIOSIS N USE OF BLOOD THINNERS Y SKIN PROBLEMS N GASTROINTESTINAL DISORDER Y PERIPHERAL VASCULAR DISEASE N MUSCLE,JOINT OR BONE PROBLEMS N GASTROINTESTINAL BLEEDING N Do you have a living will? N BLOOD CLOTS Y ASTHMA N CATARACTS N ERECTILE DYSFUNCTION N VARICOSITIES N GI PROBLEMS N Low Testosterone N INFERTILITY N AIDS/HIV N CHEMOTHERAPY / RADIATION N LIVER DISEASE N MALE HYPOGONADISM Y HYPERTENSION Y Deficiency N ANXIETY DISORDER N BLOOD TRANSFUSION N ANEMIA/BLOOD DISORDER N CHRONIC EAR INFECTIONS N BRONCHITIS N TUBERCULOSIS N GLAUCOMA N FOOT PROBLEM N DIVERTICULITIS N SLEEP APNEA N CHICKENPOX N INFECTIOUS DISEASE N PROSTATE N HEART ARRHYTHMIA N INSOMNIA N HIGH CHOLESTEROL / HYPERLIPIDEMIA Y EYE PROBLEMS N EDEMA N CHRONIC PAIN SYNDROME N CONSTIPATION N CAROTID BLOCKAGE N BACK / NECK PROBLEMS Y HAVE YOU BEEN HOSPITALIZED OR SEEN IN [facility] IN THE PAST YEAR ? N ATHEROSCLEROSIS N BREAST PROBLEMS N DIALYSIS N ECZEMA N OSTEOPOROSIS N ARTHRITIS N Do you have a healthcare POA? N APPENDICITIS N DIABETES, TYPE N BAD TEETH N ENT N HEARTBURN / REFLUX N AFIB N AUTISM SPECTRUM DISORDER (ASD) N HEPATITIS / LIVER DISEASE N GOUT N SLEEP DISORDER N ALZHEIMER'S DISEASE N Brain Problems N HERPES N DEMENTIA N SEIZURES/EPILEPSY N HEADACHES/MIGRAINES N VASCULAR DISEASE N PACEMAKER N Blood Disorder N DIZZINESS N KIDNEY DISEASE N HEART DISEASE/HEART PROBLEMS N MULTIPLE SCLEROSIS N CARDIAC ARRHYTHMIA N CANCER: SPECIFY N Gall Stones N ATRIAL FIBRILLATION N PULMONARY EMBOLISM N AUTOIMMUNE DISEASE N Immunizations Vaccine Type Date Status Note Provider Nam e and Address Organization Details Recorded Time influenza, unspecified formulation 2 completed Not Available [facility] 09/02/2023 06:42:51 Influenza, high-dose, quadrivalent, PF 1 completed Not Available [facility] 09/02/2023 06:42:51 COVID-19, mRNA, LNP-S, PF, 30 mcg/0.3 mL dose 1 completed Not Available [facility] 09/02/2023 06:42:51 COVID-19, mRNA, LNP-S, PF, 30 mcg/0.3 mL dose 1 completed Not Available [facility] 09/02/2023 06:42:51 COVID-19, mRNA, LNP-S, PF, 30 mcg/0.3 mL dose 1 completed Not Available [facility] 09/02/2023 06:42:51 Influenza, high-dose, quadrivalent, PF 9 completed Not Available [facility] 09/02/2023 06:42:51 Past Encounters Encounter ID Performer Location Encounter Start Date Encounter Closed Date Diagnosis/Indication Diagnosis SNOMED-CT Code Diagnosis ICD10 Code Diagnosis IMO Codes Diagnosis Note [id number] Lisbeth Burton MD [facility] [place] [facility] [address] [facility] [address] [address] 12/08/2020 00:00:00 12/11/2020 14:39:04 [id number] Lisbeth Burton MD [facility] [place] [facility] 15 2043 [facility].[address] [address] 06/02/2021 00:00:00 06/03/2021 14:21:13 [id number] Lisbeth Burton MD [facility] [place] [facility] 2043 [facility].[address] [address] 09/22/2021 00:00:00 09/23/2021 13:01:02 [id number] Lisbeth Burton MD [facility] [place] [facility] 15 2043 [facility]., [address] [address] 01/17/2022 00:00:00 01/18/2022 08:08:10 [id number] Lisbeth Burton MD [facility] [place] [facility] 2043 [facility] [address] [address] 06/08/2022 00:00:00 06/10/2022 14:57:16 [id number] Lisbeth Burton MD [facility] [place] [facility] 2043 [facility]., [address] [address] 10/11/2022 00:00:00 10/11/2022 21:56:25 [id number] Lisbeth Burton MD [facility] Internal Med [facility] 2043 [facility] [address] [place] [address] 02/07/2023 11:00:05 02/07/2023 11:57:37 Adult health examination [id number] Z00.00 Screening for disorder 398569438 Z13.9 Anticoagulant therapy 18 6005025 Z79.01 Dyslipidemia 555708171 E 78.5 Essential hypertension 91170972 I10 Neuropathy 017775551 G62 .9 Spinal stenosis 49594931 M48.00 [id number] Lisbeth Burton MD [facility] Internal Med [facility] [address] [address] 06/17/2023 11:29:32 06/17/2023 12:50:49 Anticoagulant therapy 194607687 Z79.01 Essential hypertension 34695662 I10 Screening for malignant neoplasm of prostate 053904602 Z12.5 Neuropathy 550699863 G62 .9 Spinal stenosis 25343399 M48.00 Health Concerns Section Related Observation LastModified by Organization Detai ls LastModified Time None Recorded Concern Status LastModified by Organization Details LastModified Time None Recorded Advance Directives Directive Y: asked to bring copy for o ffice Payers Insurance Date Sequence Insurance Name Policy Number Policy Barillas Covered Member ID Barillas Member ID Guarantor Name 08/27/2023 2 [facility] (MEDICARE SUPPLEMENT) Tino Cruz [id number] Tino Cruz 08/27/2023 1 [place] Tino Cruz [id number] Tino Cruz 02/07/2023 2 [facility] (MEDICARE SUPPLEMENT) Tino Cruz [id number] Tino Cruz Notes Date Note Type Note Provider Name and Address Organization Details Recorded Time 02/07/2023 text/html Syncopal spell felt secondary to a food bolus went [facility] where upper endoscopy released he has been doing fine since. Hypertension no headache no dizziness. Venous insufficiency of the legs he needs to wear stockings. Dyslipidemia taking his simvastatin. Chronic anticoagulation no side effects chronic back pain stable annual Medicare wellness completed spinal stenosis stable Lisbeth Burton MD [address], [place], [address], [employer] [facility] 02/19/2023 22:11:30 06/17/2023 text/html Syncopal spell felt secondary to a food bolus went [facility] where upper endoscopy released he has been doing fine since. Hypertension no headache no dizziness. Venous insufficiency of the legs he needs to wear stockings. Dyslipidemia taking his simvastatin. Chronic anticoagulation no side effects chronic back pain stableSpinal stenosis stableHe is going to see a neurologist for some drooling Lisbeth Burton MD [address], [place], [address], [employer] [facility] 06/20/2023 22:52:22
--- OUTSIDE RECORDS SUMMARY | 2025-08-11 14:19 | XMS_ITS | Patient Health Record ---
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 He does not drink alcohol. He admits to h/o alcohol abuse. He uses a cane to ambulate. He is not . He lives at home with someone who can help him. He has achieved 12 years of education. He is retired. He rates his general state of health as good. 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 (Z79.01) Active confirmed Plan Of Treatment Pending Test Test Name Order Date Prothrombin Time with INR (PT/INR) 03/17 Insurance Providers Payer Name Payer Address Payer Phone Subscriber Number Group Number Insured Name Patient Relationship to Insured Coverage Start Date Coverage End Date Medicare Mo [address] [address] [place] [address] [id number] Tino Cruz Self - patient is the insured [facility] [address] [place] [address] [id number] Anthony Tino Self - patient is the insured Medical (General) History Medical History History ICD Code Hypertension Blood clot R. ankle Constipation BPH Back pain Sciatica MRSA infection L. anterior t high & upper lumbar area - underwent I&D of those wounds - apparently the superficial infection to L-spine was quite extensive Denies h/o emotional/psychiatric disorde r Admits to h/o alcohol abuse Surgical History Surgery Date(Month/Year) MRSA L. knee late 's Low back x 2 2006, 2007 MRSA back 2014
[2025-08-11 16:24] VITALS: BP 120/83; BP 132/83; PULSE 88; PULSE 93
== END 2025-08-11 16:25 | disposition left against medical advice (07) ==
LOC: ANHED 14:16
PROVIDERS: Emergency Medicine; Emergency Provider Emergency Medicine; PCP Internal Medicine
DX: R55 Syncope and collapse (principal); Z95.0 Presence of cardiac pacemaker; I44.0 Atrioventricular block, first degree; I49.3 Ventricular premature depolarization; R94.31 Abnormal electrocardiogram [ECG] [EKG]
CPT/HCPCS: 36415; 71046; 80053; 84484; 85025; 93005; 99284